=== PATIENT | female | born 1970 | race American Indian/Alaskan Native ===

== ENCOUNTER 2020-12-02 15:41 | Inpatient (IN) | payer BC ==
--- NOTE | 2020-12-02 15:50 | Emergency Department Report ---
Blank Doc - Documentation Documentation: 50-year-old female that presents with generalized abdominal pain with bright red rectal bleeding. Patient was sent by her PCP. Patient just had a colonoscopy a few days ago. 1- This initial assessment/diagnostic orders/clinical plan/ treatment(s) is/are subject to change based on pt's health status, clinical progression and re- assessment by fellow clinical providers in the ED. Further treatment and workup at subsequent clinical provers discretion. Patient/guardians urged not to elope from ED as their condition may be serious if not clinically assessed and managed. 2-labs 3-UA
[2020-12-02] MEDS ORDERED: HYDROmorphone 1 MG/1 ML INJ IV ONE (17:43)
[2020-12-02] MEDS ORDERED: SODIUM CHLORIDE 0.9% 1000 ML 1,000 ML IV ONE (17:43)
--- NOTE | 2020-12-02 17:53 | Emergency Department Report ---
ED General Adult HPI - General Chief complaint: GI Bleed Stated complaint: RECTAL BLEEDING/STOMACH PAIN PUI?: No Time Seen by Provider: 12/02/20 15:44 Source: patient, RN notes reviewed Mode of arrival: Ambulatory Limitations: No Limitations - History of Present Illness Initial comments: The patient was evaluated in the emergency department for symptoms described in the history of present illness. He/she was evaluated in the context of the global COVID-19 pandemic, which necessitated consideration that the patient might be at risk for infection with the virus that causes COVID-19. Institutional protocols and algorithms that pertain to the evaluation of patients at risk for COVID-19 are in a state of rapid change based on information released by regulatory bodies including the CDC and federal and state organizations. These policies and algorithms were followed during the patient's care in the emergency department. Please note that these policies, procedures and recommendations changed on a rapid basis. Past medical history: IBS, gastric bypass, partial hysterectomy, appendectomy, colonoscopy last week, with 3 polyps removed. Gastroenterology: Dr. Perdomo, [facility] During the entire history and physical examination, I am chaperoned by nurse Efrain Roche. This is a 50-year-old female. She is not known to myself previously. She presents to the ER today with a complaint of nontraumatic left lower quadrant pain, and intermittent painless rectal bleeding. Patient had a colonoscopy this past Thursday by the aforementioned GI group. After the procedure, she had lower abdominal cramping and bloody stool. Her medical records coder counseled her to go to the emergency room. The patient states she did not want to go to an emergency room. The next day, Thursday, she says that she felt fine. She started to have increasing cramping on Thursday. Today, she states that she had a large bloody bowel movement, "it looks like I was having a period." The patient denies headache, neck pain, chest pain, shortness of breath, hematemesis, dysuria, loss of taste and smell. Abdominal pain is primarily in the left lower quadrant. It increases with palpation. Decreases with rest, position, and heating pad. -: Gradual, days(s) Location: abdomen Radiation: non-radiation Quality: aching Consistency: intermittent Improves with: rest Worsens with: movement - Related Data Allergies Allergy/AdvReac Type Severity Reaction Status Date / Time No Known Allergies Allergy Verified 12/02/20 18:03 ED Review of Systems ROS: Stated complaint: RECTAL BLEEDING/STOMACH PAIN Other details as noted in HPI Constitutional: other (Denies loss of taste and smell). denies: fever, malaise, weakness Eyes: denies: eye discharge ENT: denies: epistaxis Respiratory: denies: cough Cardiovascular: denies: chest pain Gastrointestinal: abdominal pain, hematochezia. denies: hematemesis, melena Genitourinary: denies: dysuria Musculoskeletal: denies: back pain Skin: denies: lesions Neurological: denies: weakness Hematological/Lymphatic: denies: easy bleeding ED Past Medical Hx - Past Medical History Previous Medical History?: Yes Additional medical history: Colon polyps - Surgical History Past Surgical History?: Yes Additional Surgical History: Colonoscopy - Social History Smoking Status: Former Smoker Substance Use Type: None ED Physical Exam - General Limitations: No Limitations General appearance: alert, in no apparent distress - Head Head exam: Present: atraumatic, normocephalic - Eye Eye exam: Present: normal appearance, EOMI. Absent: nystagmus - ENT ENT exam: Present: normal exam, normal orophraynx, mucous membranes moist, normal external ear exam - Neck Neck exam: Present: normal inspection, full ROM. Absent: tenderness, meningismus - Respiratory Respiratory exam: Present: normal lung sounds bilaterally. Absent: respiratory distress, wheezes, rales, rhonchi, stridor, decreased breath sounds - Cardiovascular Cardiovascular Exam: Present: regular rate, normal rhythm, normal heart sounds. Absent: bradycardia, tachycardia, irregular rhythm, systolic murmur, diastolic murmur, rubs, gallop - GI/Abdominal GI/Abdominal exam: Present: soft, tenderness, other (There is left lower quadrant tenderness.). Absent: distended, guarding, rebound, rigid, pulsatile mass - Rectal Rectal exam: Present: normal inspection, normal rectal tone, heme (+) stool, bloody stool, other (Chaperoned by nurse Efrain Roche) - Extremities Exam Extremities exam: Present: normal inspection, full ROM, other (2+ pulses noted in the bilateral upper and lower extremities. There is no palpable cord. negative Homans sign. Muscular compartments are soft. The pelvis is stable.). Absent: pedal edema, calf tenderness - Back Exam Back exam: Present: normal inspection, full ROM. Absent: tenderness, CVA tenderness (R), CVA tenderness (L), paraspinal tenderness, vertebral tenderness - Neurological Exam Neurological exam: Present: alert, normal gait, other (No facial droop. Tongue midline. Extraocular movements intact bilaterally. Facial sensation intact to light touch in V1, V2, V3 distribution bilaterally. 5 and a 5 strength in 4 extremities. Sensation intact to light touch in 4 extremities.). Absent: motor sensory deficit - Psychiatric Psychiatric exam: Present: normal affect, normal mood - Skin Skin exam: Present: warm, dry, intact, normal color. Absent: rash ED Course Vital Signs 12/02/20 12/02/20 12/02/20 15:50 18:36 19:01 Temperature 98.5 F Pulse Rate 79 72 Respiratory 15 16 12 Rate Blood Pressure 169/105 153/87 O2 Sat by Pulse 100 100 Oximetry O2 Sat by Pulse Oximetry [ Digit-Finger] 12/02/20 12/02/20 12/02/20 19:25 19:31 19:45 Temperature Pulse Rate 80 74 83 Respiratory 16 12 11 L Rate Blood Pressure 153/87 167/92 167/92 O2 Sat by Pulse 100 100 99 Oximetry O2 Sat by Pulse Oximetry [ Digit-Finger] 12/02/20 12/02/20 12/02/20 19:50 20:00 20:15 Temperature Pulse Rate 71 72 Respiratory 12 13 Rate Blood Pressure 168/91 168/91 O2 Sat by Pulse 100 100 Oximetry O2 Sat by Pulse 99 Oximetry [ Digit-Finger] 12/02/20 12/02/20 12/02/20 20:31 20:45 21:03 Temperature Pulse Rate 73 72 74 Respiratory 11 L 11 L Rate Blood Pressure 168/91 168/91 168/91 O2 Sat by Pulse 100 100 100 Oximetry O2 Sat by Pulse Oximetry [ Digit-Finger] 12/02/20 12/02/20 12/02/20 21:15 21:31 21:36 Temperature Pulse Rate 70 74 Respiratory 17 21 16 Rate Blood Pressure 154/95 154/95 O2 Sat by Pulse 100 99 Oximetry O2 Sat by Pulse Oximetry [ Digit-Finger] 12/02/20 12/02/20 12/02/20 21:45 22:01 22:06 Temperature Pulse Rate 70 70 Respiratory 12 19 16 Rate Blood Pressure 154/95 154/95 O2 Sat by Pulse 98 100 Oximetry O2 Sat by Pulse Oximetry [ Digit-Finger] 12/02/20 12/02/20 12/02/20 22:15 22:21 22:26 Temperature Pulse Rate 74 65 71 Respiratory 17 15 13 Rate Blood Pressure 154/95 154/95 168/91 O2 Sat by Pulse 99 95 100 Oximetry O2 Sat by Pulse Oximetry [ Digit-Finger] - Reevaluation(s) Reevaluation #1: 12/02/20 17:51 Differential diagnosis, including but not limited to: Post polypectomy bleed, procedural related colitis, perforated viscus, diverticulosis, diverticulitis, angiodysplasia Assessment and plan: 50-year-old female, who was afebrile, with reassuring vital signs, hemodynamically stable at this time, with left lower quadrant pain and tenderness, and history of dark red blood per rectum status post colonoscopy 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 Obtain appropriate laboratory studies. N.p.o. status at this time, obtain CT scan of the abdomen pelvis. Reassess after initial data points. Have discussed this plan of care with the patient. She is amenable to this plan of care. Patient states she does not take systemic anticoagulation. She does not take NSAIDs. Reevaluation #2: 12/02/20 19:28 Patient feels improved. Laboratory studies are reviewed and appreciated. Have contacted gastroenterology on-call, Dr. Raza. Have discussed the patient's history, physical, pertinent laboratory studies and pending imaging studies at this time. We are both in agreement that it is reasonable to have this patient admitted for serial abdominal exams, serial CBC, and urgent GI consultation. He indicates his group can see the patient in the morning closely in consultation. CT scan abdomen pelvis pending interpretation at this time. 12/02/20 19:50 CT scan of the abdomen pelvis negative for acute findings. Patient amenable to admission and hospitalization. Hospital physician is paged to arrange admission. Dr Michelle Sexton to admit to [facility] 12/03/20 11:14 - Pulse Oximetry Interpretation Digit-Finger Initial Pulse Oximetry Readin O2 Sat by Pulse Oximetry: 99 Actions Taken: none ED Medical Decision Making - Lab Data Result diagrams: 12/03/20 04:13 12/03/20 04:13 Vital Signs 05/09/21 15:50 Temperature 98.5 F Pulse Rate 79 Respiratory 15 Rate Blood Pressure 169/105 O2 Sat by Pulse 100 Oximetry Lab Results 12/02/20 12/02/20 12/02/20 Range/Units 18:24 18:24 18:24 WBC 4.4 L (4.5-11.0) K/mm3 RBC 3.83 (3.65-5.03) M/mm3 Hgb 11.9 (10.1-14.3) gm/dl Hct 36.3 (30.3-42.9) % MCV 95 (79-97) fl MCH 31 (28-32) pg MCHC 33 (30-34) % RDW 13.5 (13.2-15.2) % Plt Count 231 (140-440) K/mm3 Lymph % (Auto) 37.0 H (13.4-35.0) % Gilmer % (Auto) 12.8 H (0.0-7.3) % Eos % (Auto) 2.1 (0.0-4.3) % Baso % (Auto) 0.5 (0.0-1.8) % Lymph # (Auto) 1.6 (1.2-5.4) K/mm3 Gilmer # (Auto) 0.6 (0.0-0.8) K/mm3 Eos # (Auto) 0.1 (0.0-0.4) K/mm3 Baso # (Auto) 0.0 (0.0-0.1) K/mm3 Seg Neutrophils % 47.6 (40.0-70.0) % Seg Neutrophils # 2.1 (1.8-7.7) K/mm3 PT 12.2 (12.2-14.9) Sec. INR 0.92 (0.87-1.13) APTT 31.0 (24.2-36.6) Sec. Sodium 142 (137-145) mmol/L Potassium 4.4 (3.6-5.0) mmol/L Chloride 105.2 (98-107) mmol/L Carbon Dioxide 30 (22-30) mmol/L Anion Gap 11 mmol/L BUN 17 (7-17) mg/dL Creatinine 0.7 (0.6-1.2) mg/dL Estimated GFR > 60 ml/min BUN/Creatinine Ratio 24 % Glucose 89 (65-100) mg/dL Calcium 8.8 (8.4-10.2) mg/dL Magnesium 2.40 H (1.7-2.3) mg/dL Total Bilirubin 0.20 (0.1-1.2) mg/dL AST 22 (5-40) units/L ALT 30 (7-56) units/L Alkaline Phosphatase 103 (35-129) units/L Total Creatine Kinase (30-135) units/L Total Protein 6.8 (6.3-8.2) g/dL Albumin 4.2 (3.9-5) g/dL Albumin/Globulin Ratio 1.6 % Blood Type 12/02/20 12/02/20 Range/Units 18:24 18:24 WBC (4.5-11.0) K/mm3 RBC (3.65-5.03) M/mm3 Hgb (10.1-14.3) gm/dl Hct (30.3-42.9) % MCV (79-97) fl MCH (28-32) pg MCHC (30-34) % RDW (13.2-15.2) % Plt Count (140-440) K/mm3 Lymph % (Auto) (13.4-35.0) % Gilmer % (Auto) (0.0-7.3) % Eos % (Auto) (0.0-4.3) % Baso % (Auto) (0.0-1.8) % Lymph # (Auto) (1.2-5.4) K/mm3 Gilmer # (Auto) (0.0-0.8) K/mm3 Eos # (Auto) (0.0-0.4) K/mm3 Baso # (Auto) (0.0-0.1) K/mm3 Seg Neutrophils % (40.0-70.0) % Seg Neutrophils # (1.8-7.7) K/mm3 PT (12.2-14.9) Sec. INR (0.87-1.13) APTT (24.2-36.6) Sec. Sodium (137-145) mmol/L Potassium (3.6-5.0) mmol/L Chloride (98-107) mmol/L Carbon Dioxide (22-30) mmol/L Anion Gap mmol/L BUN (7-17) mg/dL Creatinine (0.6-1.2) mg/dL Estimated GFR ml/min BUN/Creatinine Ratio % Glucose (65-100) mg/dL Calcium (8.4-10.2) mg/dL Magnesium (1.7-2.3) mg/dL Total Bilirubin (0.1-1.2) mg/dL AST (5-40) units/L ALT (7-56) units/L Alkaline Phosphatase (35-129) units/L Total Creatine Kinase 60 (30-135) units/L Total Protein (6.3-8.2) g/dL Albumin (3.9-5) g/dL Albumin/Globulin Ratio % Blood Type O POSITIVE - Radiology Data Radiology results: report reviewed, image reviewed [facility] [address] [place] [address] Cat Scan Report Signed Patient: AGAPITO TRIANA MR#: [id number] : 1970 Acct:[id number] Age/Sex: 50 / F ADM Date: 12/02/20 Loc: ED Attending Dr: Ordering Physician: ANAYA MORLEY MD Date of Service: 12/02/20 Procedure(s): CT abdomen pelvis w con Accession Number(s): [id number] cc: ANAYA MORLEY MD CT ABDOMEN AND PELVIS WITH CONTRAST HISTORY: Left lower quadrant pain and GI bleeding COMPARISON: None TECHNIQUE: Routine abdominal and pelvic CT exam performed following intravenous contrast administration.. All CT scans at this location are performed using CT dose reduction for ALARA by means of automated exposure control. FINDINGS: CT ABDOMEN: Lung Bases: No significant abnormality. Liver: Small simple cyst in the mid right hepatic lobe. Biliary: No significant abnormality. Spleen: No significant abnormality. Unenlarged. Pancreas: No significant abnormality. Adrenals: No significant abnormality. Kidneys: No significant abnormality. Lymphatics: No lymphadenopathy. Vasculature: No significant abnormality. 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 Appendix not visualized. No pericecal inflammation. Sigmoid diverticulosis without diverticulitis. CT PELVIC: : There is a 2.5 cm right ovarian cyst. Lymphatics: No lymphadenopathy. Osseous Structures: No aggressive appearing osseous lesions. Additional Findings: None IMPRESSION: 1. No acute findings. 2. Sigmoid diverticulosis without diverticulitis. 3. Incidental 2.5 cm right ovarian cyst. Signer Name: Ramesh Nesbitt MD Signed: 12/02/2020 7:39 PM Workstation Name: [id number] Transcribed By: SHYAM Dictated By: Ramesh Nesbitt MD Electronically Authenticated By: Ramesh Nesbitt MD Signed Date/Time: 12/02/201938 DD/DT: 1936 Critical care attestation.: If time is entered above; I have spent that time in minutes in the direct care of this critically ill patient, excluding procedure time. ED Disposition Clinical Impression: Left lower quadrant abdominal pain, Status post colonoscopy, Sigmoid diverticulosis Gastrointestinal bleed Qualifiers: GI bleed type/associated pathology: unspecified gastrointestinal hemorrhage type Qualified Code(s): K92.2 - Gastrointestinal hemorrhage, unspecified Disposition: OP ADMIT IP TO THIS HOSP Is pt being admited?: Yes Does the pt Need Aspirin: No Condition: Good
[2020-12-02] MEDS ORDERED: ONDANSETRON 4 MG/2 ML INJ ONE (18:02)
[2020-12-02] MEDS ORDERED: ONDANSETRON 4 MG/2 ML INJ IV ONE (18:02)
[2020-12-02] MEDS ORDERED: hydrOXYzine HCL 25 MG TAB PO ONE (18:26)
[2020-12-02 18:41] LABS: Basophils % (Auto) 0.5 % (0.0-1.8); Eosinophils # (Auto) 0.1 K/mm3 (0.0-0.4); Eosinophils % (Auto) 2.1 % (0.0-4.3); Hematocrit 36.3 % (30.3-42.9); Hemoglobin 11.9 gm/dl (10.1-14.3); Lymphocytes # (Auto) 1.6 K/mm3 (1.2-5.4); Mean Corpuscular HGB Conc 33 % (30-34); Mean Corpuscular Volume 95 fl (79-97); Monocytes # (Auto) 0.6 K/mm3 (0.0-0.8); Monocytes % (Auto) 12.8 % (0.0-7.3); Platelet Count 231 K/mm3 (140-440); Red Blood Count 3.83 M/mm3 (3.65-5.03); Red Cell Distribution Width 13.5 % (13.2-15.2)
[2020-12-02 18:53] LABS: INR 0.92 (0.87-1.13)
[2020-12-02 18:58] LABS: Alanine Aminotransferase 30 units/L (7-56); Albumin 4.2 g/dL (3.9-5); BUN/Creatinine Ratio 24; Blood Urea Nitrogen 17 mg/dL (7-17); Calcium 8.8 mg/dL (8.4-10.2); Hemolysis Index 3
--- NOTE | 2020-12-02 19:43 | Cat Scan Report ---
CT ABDOMEN AND PELVIS WITH CONTRAST HISTORY: Left lower quadrant pain and GI bleeding COMPARISON: None TECHNIQUE: Routine abdominal and pelvic CT exam performed following intravenous contrast administrat ion.. All CT scans at this location are performed using CT dose reduction for ALARA by means of autom ated exposure control. FINDINGS: CT ABDOMEN: Lung Bases: No significant abnormality. Liver: Small simple cyst in the mid right hepatic lobe. Biliary: No significant abnormality. Spleen: No significant abnormality. Unenlarged. Pancreas: No significant abnormality. Adrenals: No significant abnormality. Kidneys: No significant abnormality. Lymphatics: No lymphadenopathy. Vasculature: No significant abnormality. 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 A ppendix not visualized. No pericecal inflammation. Sigmoid diverticulosis without diverticulitis. CT PELVIC: : There is a 2.5 cm right ovarian cyst. Lymphatics: No lymphadenopathy. Osseous Structures: No aggressive appearing osseous lesions. Additional Findings: None IMPRESSION: 1. No acute findings. 2. Sigmoid diverticulosis without diverticulitis. 3. Incidental 2.5 cm right ovarian cyst. Signer Name: Ramesh Nesbitt MD Signed: 12/02/2020 7:39 PM Workstation Name: [id number]
[2020-12-02] MEDS ORDERED: ONDANSETRON 4 MG/2 ML INJ IV PRN (20:48)
[2020-12-02] MEDS ORDERED: METOCLOPRAMIDE 10 MG/2 ML INJ IV PRN (20:48)
[2020-12-02] MEDS ORDERED: ACETAMINOPHEN 325 MG TAB PO PRN (20:48)
--- NOTE | 2020-12-02 21:03 | History and Physical Report ---
History of Present Illness Date of examination: 12/02/20 Date of admission: Dec 02 2020 Chief complaint: Sonal red blood per rectum since a.m. History of present illness: 50-year-old -[place] female with history of borderline diabetes comes in for left lower quadrant pain and sonal red blood per rectum. This is a first episode of bleeding. Patient had a colonoscopy on Thursday which is 5 days ago and a polyp was removed and hemorrhoids were visualized. Patient has seen Dr. Perdomo from [facility] gastroenterology. No fever or chills. Call her public health specialist who told her to come to the emergency room. No lightheadedness. No fainting spells. Pain is about 6 on a scale of 1-10 intermittent in nature and cramping in nature. Patient has also history of gastroesophageal reflux disease. On PPIs - Past Medical History Previous Medical History?: Yes Additional medical history: Colon polyps GERD - Surgical History Past Surgical History?: Yes Additional Surgical History: Colonoscopy - Social History Smoking Status: Former Smoker Substance Use Type: None Family history Htn Review of Systems ROS: Stated complaint: RECTAL BLEEDING/STOMACH PAIN Other details as noted in HPI Constitutional: other (Denies loss of taste and smell). denies: fever, malaise, weakness Eyes: denies: eye discharge ENT: denies: epistaxis Respiratory: denies: cough Cardiovascular: denies: chest pain Gastrointestinal: abdominal pain, hematochezia. denies: hematemesis, melena Genitourinary: denies: dysuria Musculoskeletal: denies: back pain Skin: denies: lesions Neurological: denies: weakness Hematological/Lymphatic: denies: easy bleeding Medications and Allergies Allergies Allergy/AdvReac Type Severity Reaction Status Date / Time No Known Allergies Allergy Verified 12/02/20 18:03 Exam - Constitutional Vitals: Temp Pulse Resp BP Pulse Ox 98.5 F 72 12 153/87 99 12/02/20 15:50 12/02/20 19:01 12/02/20 19:01 12/02/20 19:01 12/02/20 19:50 General appearance: Present: no acute distress, well-nourished - EENT Eyes: Present: PERRL ENT: hearing intact, clear oral mucosa - Neck Neck: Present: supple, normal ROM - Respiratory Respiratory effort: normal Respiratory: bilateral: CTA - Cardiovascular Heart rate: 78 Rhythm: regular Heart Sounds: Present: S1 & S2. Absent: rub, click - Extremities Extremities: no ischemia, pulses intact, pulses symmetrical, No edema Peripheral Pulses: within normal limits - Abdominal General gastrointestinal: Present: soft, non-tender, non-distended, normal bowel sounds Female genitourinary: Present: normal - Rectal Rectal Exam: stool bloody - Integumentary Integumentary: Present: clear, warm, dry - Musculoskeletal Musculoskeletal: gait normal, strength equal bilaterally - Psychiatric Psychiatric: appropriate mood/affect, intact judgment & insight - Neurologic Neurologic: CNII-XII intact, moves all extremities - Allied Health Allied health notes reviewed: nursing, case management Results - Labs CBC & Chem 7: 12/02/20 21:07 12/02/20 18:24 Labs: Laboratory Last Values WBC 4.4 K/mm3 (4.5-11.0) L 12/02/20 18:24 RBC 3.83 M/mm3 (3.65-5.03) 12/02/20 18:24 Hgb 11.9 gm/dl (10.1-14.3) 12/02/20 18:24 Hct 36.3 % (30.3-42.9) 12/02/20 18:24 MCV 95 fl (79-97) 12/02/20 18:24 MCH 31 pg (28-32) 12/02/20 18:24 MCHC 33 % (30-34) 12/02/20 18:24 RDW 13.5 % (13.2-15.2) 12/02/20 18:24 Plt Count 231 K/mm3 (140-440) 12/02/20 18:24 Lymph % (Auto) 37.0 % (13.4-35.0) H 12/02/20 18:24 Dunn % (Auto) 12.8 % (0.0-7.3) H 12/02/20 18:24 Eos % (Auto) 2.1 % (0.0-4.3) 12/02/20 18:24 Baso % (Auto) 0.5 % (0.0-1.8) 12/02/20 18:24 Lymph # (Auto) 1.6 K/mm3 (1.2-5.4) 12/02/20 18:24 Dunn # (Auto) 0.6 K/mm3 (0.0-0.8) 12/02/20 18:24 Eos # (Auto) 0.1 K/mm3 (0.0-0.4) 12/02/20 18:24 Baso # (Auto) 0.0 K/mm3 (0.0-0.1) 12/02/20 18:24 Seg Neutrophils % 47.6 % (40.0-70.0) 12/02/20 18:24 Seg Neutrophils # 2.1 K/mm3 (1.8-7.7) 12/02/20 18:24 PT 12.2 Sec. (12.2-14.9) 12/02/20 18:24 INR 0.92 (0.87-1.13) 12/02/20 18:24 APTT 31.0 Sec. (24.2-36.6) 12/02/20 18:24 Sodium 142 mmol/L (137-145) 12/02/20 18:24 Potassium 4.4 mmol/L (3.6-5.0) 12/02/20 18:24 Chloride 105.2 mmol/L (98-107) 12/02/20 18:24 Carbon Dioxide 30 mmol/L (22-30) 12/02/20 18:24 Anion Gap 11 mmol/L 12/02/20 18:24 BUN 17 mg/dL (7-17) 12/02/20 18:24 Creatinine 0.7 mg/dL (0.6-1.2) 12/02/20 18:24 Estimated GFR > 60 ml/min 12/02/20 18:24 BUN/Creatinine Ratio 24 % 12/02/20 18:24 Glucose 89 mg/dL (65-100) 12/02/20 18:24 Calcium 8.8 mg/dL (8.4-10.2) 12/02/20 18:24 Magnesium 2.40 mg/dL (1.7-2.3) H 12/02/20 18:24 Total Bilirubin 0.20 mg/dL (0.1-1.2) 12/02/20 18:24 AST 22 units/L (5-40) 12/02/20 18:24 ALT 30 units/L (7-56) 12/02/20 18:24 Alkaline Phosphatase 103 units/L (35-129) 12/02/20 18:24 Total Creatine Kinase 60 units/L (30-135) 12/02/20 18:24 Total Protein 6.8 g/dL (6.3-8.2) 12/02/20 18:24 Albumin 4.2 g/dL (3.9-5) 12/02/20 18:24 Albumin/Globulin Ratio 1.6 % 12/02/20 18:24 Blood Type O POSITIVE 12/02/20 18:24 Antibody Screen Negative 12/02/20 18:24 Short CBC 12/02/20 12/02/20 Range/Units 18:24 21:07 WBC 4.4 L (4.5-11.0) K/mm3 Hgb 11.9 11.9 (10.1-14.3) gm/dl Hct 36.3 36.8 (30.3-42.9) % Plt Count 231 (140-440) K/mm3 BMP 12/02/20 18:24 Sodium 142 Potassium 4.4 Chloride 105.2 Carbon Dioxide 30 BUN 17 Creatinine 0.7 Glucose 89 Calcium 8.8 Cardiac Enzymes 12/02/20 Range/Units 18:24 Total Creatine Kinase 60 (30-135) units/L Liver Function 12/02/20 Range/Units 18:24 Total Bilirubin 0.20 (0.1-1.2) mg/dL AST 22 (5-40) units/L ALT 30 (7-56) units/L Alkaline Phosphatase 103 (35-129) units/L Albumin 4.2 (3.9-5) g/dL - Imaging and Cardiology CT scan - abdomen: report reviewed Imaging and Cardiology: CT abdomen Abdominal CAT scan No acute findings Sigmoid diverticulosis without diverticulitis Incidental 2.5 cm right ovarian cyst Assessment and Plan Advance Directives: Yes (Full code) VTE prophylaxis?: Mechanical Plan of care discussed with patient/family: Yes - Patient Problems (1) Gastrointestinal bleed Current Visit: Yes Status: Acute Qualifiers: GI bleed type/associated pathology: unspecified gastrointestinal hemorrhage type Qualified Code(s): K92.2 - Gastrointestinal hemorrhage, unspecified Plan to address problem: Possible diverticular bleed versus hemorrhoids GI consult requested IV Protonix initiated Hemoglobin and hematocrit to be checked every 8 hours Transfuse if necessary (2) Sigmoid diverticulosis Current Visit: Yes Status: Chronic Plan to address problem: On the CAT scan May be the source of the bleeding (3) Hypertension Current Visit: Yes Status: Chronic Qualifiers: Hypertension type: essential hypertension Qualified Code(s): I10 - Essential (primary) hypertension Plan to address problem: As per patient is borderline and not on any medications We will start antihypertensives if necessary (4) GERD (gastroesophageal reflux disease) Current Visit: Yes Status: Chronic Qualifiers: Esophagitis presence: with esophagitis Plan to address problem: On IV Protonix for now changed to oral Protonix in 24 to 48 hours (5) DVT prophylaxis Current Visit: Yes Status: Acute Plan to address problem: On SCDs and GI prophylaxis
[2020-12-02 21:33] LABS: Hematocrit 36.8 % (30.3-42.9); Hemoglobin 11.9 gm/dl (10.1-14.3)
[2020-12-02] MEDS: D5W/0.9% NACL 1,000 ML IV SCH (21:33)
[2020-12-02] MEDS: diphenhydrAMINE 50 MG/ML VIAL IV PRN (21:35)
[2020-12-02] MEDS: MORPHINE 2 MG/1 ML INJ IV PRN (21:36)
[2020-12-03] MEDS: MORPHINE 2 MG/1 ML INJ IV PRN ×5 (01:53→23:16)
[2020-12-03] MEDS: diphenhydrAMINE 50 MG/ML VIAL IV PRN ×4 (01:55→23:16)
[2020-12-03 04:37] LABS: Basophils % (Auto) 0.9 % (0.0-1.8); Eosinophils # (Auto) 0.1 K/mm3 (0.0-0.4); Eosinophils % (Auto) 1.7 % (0.0-4.3); Hematocrit 32.9 % (30.3-42.9); Hemoglobin 10.9 gm/dl (10.1-14.3); Lymphocytes % (Auto) 51.5 % (13.4-35.0); Mean Corpuscular HGB Conc 33 % (30-34); Mean Corpuscular Volume 94 fl (79-97); Monocytes # (Auto) 0.4 K/mm3 (0.0-0.8); Monocytes % (Auto) 10.6 % (0.0-7.3); Platelet Count 208 K/mm3 (140-440); Red Blood Count 3.49 M/mm3 (3.65-5.03); Red Cell Distribution Width 13.3 % (13.2-15.2)
[2020-12-03 04:53] LABS: Alanine Aminotransferase 24 units/L (7-56); Albumin 3.4 g/dL (3.9-5); Blood Urea Nitrogen 14 mg/dL (7-17); Calcium 8.5 mg/dL (8.4-10.2); Hemolysis Index 5
[2020-12-03 04:54] LABS: BUN/Creatinine Ratio 23
[2020-12-03] MEDS: D5W/0.9% NACL 1,000 ML IV SCH ×2 (09:01→19:01)
[2020-12-03] MEDS ORDERED: PANTOPRAZOLE 40 MG INJ IV SCH (10:00)
--- NOTE | 2020-12-03 12:07 | Progress Note ---
Assessment and Plan Assessment and plan: Assessment and Plan Advance Directives: Yes (Full code) VTE prophylaxis?: Mechanical Plan of care discussed with patient/family: Yes - Patient Problems (1) Gastrointestinal bleed Current Visit: Yes Status: Acute Qualifiers: GI bleed type/associated pathology: unspecified gastrointestinal hemorrhage type Qualified Code(s): K92.2 - Gastrointestinal hemorrhage, unspecified Plan to address problem: Possible diverticular bleed versus hemorrhoids GI consult requested IV Protonix initiated Hemoglobin and hematocrit to be checked every 8 hours Transfuse if necessary (2) Sigmoid diverticulosis Current Visit: Yes Status: Chronic Plan to address problem: On the CAT scan May be the source of the bleeding (3) Hypertension Current Visit: Yes Status: Chronic Qualifiers: Hypertension type: essential hypertension Qualified Code(s): I10 - Essential (primary) hypertension Plan to address problem: As per patient is borderline and not on any medications We will start antihypertensives if necessary (4) GERD (gastroesophageal reflux disease) Current Visit: Yes Status: Chronic Qualifiers: Esophagitis presence: with esophagitis Plan to address problem: On IV Protonix for now changed to oral Protonix in 24 to 48 hours (5) DVT prophylaxis Current Visit: Yes Status: Acute Plan to address problem: On SCDs and GI prophylaxis 12/03/20 Patient is seen and examined. Patient has no more bowel movement .no more GI bleeding. Complained of abdominal pain no nausea vomiting Patient hemoglobin is 10.[address] abdomen No acute findings Sigmoid diverticulosis without diverticulitis Incidental 2.5 cm right ovarian cyst. Patient is on IV Protonix. Waiting for GI evaluation Recheck CBC in the morning. Discharge planning when cleared by GI Chief complaint: Sonal red blood per rectum since a.m. History of present illness: 50-year-old -[place] female with history of borderline diabetes comes in for left lower quadrant pain and sonal red blood per rectum. This is a first episode of bleeding. Patient had a colonoscopy on Thursday which is 5 days ago and a polyp was removed and hemorrhoids were visualized. Patient has seen Dr. Perdomo from [facility] gastroenterology. No fever or chills. Call her mike roenterologist who told her to come to the emergency room. No lightheadedness. No fainting spells. Pain is about 6 on a scale of 1-10 intermittent in nature and cramping in nature. Patient has also history of gastroesophageal reflux disease. On PPIs - Past Medical History Previous Medical History?: Yes Additional medical history: Colon polyps GERD - Surgical History Past Surgical History?: Yes Additional Surgical History: Colonoscopy - Social History Smoking Status: Former Smoker Substance Use Type: None Family history Htn History Interval history: Patient is seen and examined Patient chart and medications reviewed Patient has normal bowel movement. No more GI bleeding. Patient complained of abdominal pain. No nausea no vomiting Hemoglobin is 10.9 hematocrit 32.9 Vitals are stable Hospitalist Physical - Constitutional Vitals: Temp Pulse Resp BP Pulse Ox 98.3 F 73 18 116/67 99 12/03/20 08:00 12/03/20 08:00 12/03/20 09:40 12/03/20 08:00 12/03/20 11:15 General appearance: Present: no acute distress, well-nourished - EENT Eyes: Present: PERRL, EOM intact ENT: hearing intact, clear oral mucosa, dentition normal - Neck Neck: Present: supple, normal ROM - Respiratory Respiratory effort: normal Respiratory: bilateral: CTA - Cardiovascular Rhythm: regular Heart Sounds: Present: S1 & S2 - Extremities Extremities: no ischemia Peripheral Pulses: within normal limits - Abdominal General gastrointestinal: soft, non-tender, non-distended, normal bowel sounds - Integumentary Integumentary: Present: warm, dry - Psychiatric Psychiatric: appropriate mood/affect, intact judgment & insight - Neurologic Neurologic: CNII-XII intact, moves all extremities - Allied Health Allied health notes reviewed: nursing Results - Labs CBC & Chem 7: 12/03/20 04:13 12/03/20 04:13 Labs: Laboratory Last Values WBC 4.0 K/mm3 (4.5-11.0) L 12/03/20 04:13 RBC 3.49 M/mm3 (3.65-5.03) L 12/03/20 04:13 Hgb 10.9 gm/dl (10.1-14.3) 12/03/20 04:13 Hct 32.9 % (30.3-42.9) 12/03/20 04:13 MCV 94 fl (79-97) 12/03/20 04:13 MCH 31 pg (28-32) 12/03/20 04:13 MCHC 33 % (30-34) 12/03/20 04:13 RDW 13.3 % (13.2-15.2) 12/03/20 04:13 Plt Count 208 K/mm3 (140-440) 12/03/20 04:13 Lymph % (Auto) 51.5 % (13.4-35.0) H 12/03/20 04:13 Stephenson % (Auto) 10.6 % (0.0-7.3) H 12/03/20 04:13 Eos % (Auto) 1.7 % (0.0-4.3) 12/03/20 04:13 Baso % (Auto) 0.9 % (0.0-1.8) 12/03/20 04:13 Lymph # (Auto) 2.0 K/mm3 (1.2-5.4) 12/03/20 04:13 Stephenson # (Auto) 0.4 K/mm3 (0.0-0.8) 12/03/20 04:13 Eos # (Auto) 0.1 K/mm3 (0.0-0.4) 12/03/20 04:13 Baso # (Auto) 0.0 K/mm3 (0.0-0.1) 12/03/20 04:13 Seg Neutrophils % 35.3 % (40.0-70.0) L 12/03/20 04:13 Seg Neutrophils # 1.4 K/mm3 (1.8-7.7) L 12/03/20 04:13 PT 12.2 Sec. (12.2-14.9) 12/02/20 18:24 INR 0.92 (0.87-1.13) 12/02/20 18:24 APTT 31.0 Sec. (24.2-36.6) 12/02/20 18:24 Sodium 140 mmol/L (137-145) 12/03/20 04:13 Potassium 3.9 mmol/L (3.6-5.0) 12/03/20 04:13 Chloride 105.0 mmol/L (98-107) 12/03/20 04:13 Carbon Dioxide 27 mmol/L (22-30) 12/03/20 04:13 Anion Gap 12 mmol/L 12/03/20 04:13 BUN 14 mg/dL (7-17) 12/03/20 04:13 Creatinine 0.6 mg/dL (0.6-1.2) 12/03/20 04:13 Estimated GFR > 60 ml/min 12/03/20 04:13 BUN/Creatinine Ratio 23 % 12/03/20 04:13 Glucose 93 mg/dL (65-100) 12/03/20 04:13 Hemoglobin A1c 5.1 % (4-6) 12/03/20 04:13 Calcium 8.5 mg/dL (8.4-10.2) 12/03/20 04:13 Magnesium 2.40 mg/dL (1.7-2.3) H 12/02/20 18:24 Total Bilirubin 0.30 mg/dL (0.1-1.2) 12/03/20 04:13 AST 18 units/L (5-40) 12/03/20 04:13 ALT 24 units/L (7-56) 12/03/20 04:13 Alkaline Phosphatase 78 units/L (35-129) 12/03/20 04:13 Total Creatine Kinase 60 units/L (30-135) 12/02/20 18:24 Total Protein 6.0 g/dL (6.3-8.2) L 12/03/20 04:13 Albumin 3.4 g/dL (3.9-5) L 12/03/20 04:13 Albumin/Globulin Ratio 1.3 % 12/03/20 04:13 Blood Type O POSITIVE 12/02/20 18:24 Antibody Screen Negative 12/02/20 18:24 Rivera/IV: Voiding Method Toilet Active Medications - Current Medications Current Medications: Generic Name Dose Route Start Last Admin Trade Name Freq PRN Reason Stop Dose Admin Acetaminophen 650 mg 12/02/20 20:48 Acetaminophen 325 Mg Tab PO Q4H PRN Pain MILD(1-3)/Fever >100.5/GRAY Diphenhydramine HCl 25 mg 12/02/20 21:12 12/03/20 09:01 Diphenhydramine 50 Mg/Ml Vial IV 25 mg Q6H PRN Administration Itching Hydromorphone HCl 0.5 mg 12/02/20 20:48 Hydromorphone 1 Mg/1 Ml Inj IV Q3H PRN Pain , Severe (7-10) Dextrose/Sodium Chloride 1,000 mls @ 75 mls/hr 12/02/20 21:00 12/03/20 09:01 D5ns IV 75 mls/hr DIRECT GLORIA Administration Metoclopramide HCl 10 mg 12/02/20 20:48 Metoclopramide 10 Mg/2 Ml Inj IV Q6H PRN Nausea And Vomiting Morphine Sulfate 2 mg 12/02/20 20:48 12/03/20 09:01 Morphine 2 Mg/1 Ml Inj IV 2 mg Q4H PRN Administration Pain, Moderate (4-6) Ondansetron HCl 4 mg 12/02/20 20:48 Ondansetron 4 Mg/2 Ml Inj IV Q8H PRN Nausea And Vomiting Pantoprazole Sodium 40 mg 12/03/20 10:00 12/03/20 09:01 Pantoprazole 40 Mg Inj IV 40 mg DAILY GLORIA Administration Sodium Chloride 10 ml 12/02/20 22:00 12/03/20 09:01 Sodium Chloride 0.9% 10 Ml Flush Syringe IV 10 ml BID GLORIA Administration Sodium Chloride 10 ml 12/02/20 20:48 Sodium Chloride 0.9% 10 Ml Flush Syringe IV PRN PRN LINE FLUSH Nutrition/Malnutrition Assess - Malnutrition Assessment Minimum of two criteria: No physical signs of malnutrition - Attestation Statement I have reviewed and agreed w/ Malnutrition eval & tx plan: Yes
--- NOTE | 2020-12-03 13:00 | Gastroenterology Consultation ---
History of Present Illness - Reason for Consult Consult date: 12/03/20 GI bleed Requesting physician: RAUDEL PINO - History of Present Illness This is a 50 yo female with pmh of bordeline DM and IBS, diverticulosis admitted overnight for LLQ pain and hematochezia after a recent outpatient colonoscopy. Patient reports having colonoscopy with Dr. Perdomo 1 week ago on 11/26/2020 for irregular bowel habits. She was told it showed diverticulosis and polyps removed as well as hemorrhoids. She developed LLQ pain on and worsened over the weekend along with 2 episodes of bloody stools yesterday. No nausea/vomiting. In the ED, she had CT a/p which showed sigmoid diverticulosis without diverticulitis. No BM overnight and this morning. Her LLQ pain has somewhat improved. Medication list reviewed. Past History Past Surgical History: appendectomy, hysterectomy, hernia repair Social history: lives with family Family history: no significant family history Medications and Allergies Allergies Allergy/AdvReac Type Severity Reaction Status Date / Time No Known Allergies Allergy Verified 12/02/20 18:03 Active Meds: Active Medications Acetaminophen (Acetaminophen 325 Mg Tab) 650 mg PO Q4H PRN PRN Reason: Pain MILD(1-3)/Fever >100.5/GRAY Diphenhydramine HCl (Diphenhydramine 50 Mg/Ml Vial) 25 mg IV Q6H PRN PRN Reason: Itching Last Admin: 12/03/20 09:01 Dose: 25 mg Documented by: Hydromorphone HCl (Hydromorphone 1 Mg/1 Ml Inj) 0.5 mg IV Q3H PRN PRN Reason: Pain , Severe (7-10) Dextrose/Sodium Chloride (D5ns) 1,000 mls @ 75 mls/hr IV DIRECT GLORIA Last Admin: 12/03/20 09:01 Dose: 75 mls/hr Documented by: Metoclopramide HCl (Metoclopramide 10 Mg/2 Ml Inj) 10 mg IV Q6H PRN PRN Reason: Nausea And Vomiting Morphine Sulfate (Morphine 2 Mg/1 Ml Inj) 2 mg IV Q4H PRN PRN Reason: Pain, Moderate (4-6) Last Admin: 12/03/20 09:01 Dose: 2 mg Documented by: Ondansetron HCl (Ondansetron 4 Mg/2 Ml Inj) 4 mg IV Q8H PRN PRN Reason: Nausea And Vomiting Pantoprazole Sodium (Pantoprazole 40 Mg Inj) 40 mg IV DAILY [facility] Last Admin: 12/03/20 09:01 Dose: 40 mg Documented by: Sodium Chloride (Sodium Chloride 0.9% 10 Ml Flush Syringe) 10 ml IV BID [facility] Last Admin: 12/03/20 09:01 Dose: 10 ml Documented by: Sodium Chloride (Sodium Chloride 0.9% 10 Ml Flush Syringe) 10 ml IV PRN PRN PRN Reason: LINE FLUSH Review of Systems - Review of Systems All systems: negative Constitutional: no weight loss, no weight gain Eyes: no change in vision Ears, Nose, Throat: no decreased hearing Cardiovascular: no chest pain Gastrointestinal: abdominal pain, hematochezia, no nausea, no vomiting Musculoskeletal: no gait dysfunction Neurological: weakness Psychiatric: no anxiety, no memory loss Hematologic/Lymphatic: no easy bruising Allergic/Immunologic: no wheezing Exam - Constitutional Vital Signs: Temp Pulse Resp BP Pulse Ox 98.3 F 73 18 116/67 99 12/03/20 08:00 12/03/20 08:00 12/03/20 09:40 12/03/20 08:00 12/03/20 11:15 General appearance: no acute distress - EENT Eyes: EOM intact ENT: hearing intact - Respiratory Respiratory effort: normal - Cardiovascular Rhythm: regular Heart Sounds: Present: S1 & S2 - Gastrointestinal General gastrointestinal: Present: soft, tender, non-distended, normal bowel sounds Rectal Exam: hemorrhoids, stool brown - Integumentary Integumentary: Present: clear, warm - Neurologic Neurological: alert and oriented x3 - Psychiatric Psychiatric: appropriate mood/affect - Labs CBC & Chem 7: 12/03/20 04:13 12/03/20 04:13 Lab Results: Laboratory Results - last 24 hr 12/02/20 12/02/20 12/02/20 18:24 18:24 18:24 WBC 4.4 L RBC 3.83 Hgb 11.9 Hct 36.3 MCV 95 MCH 31 MCHC 33 RDW 13.5 Plt Count 231 Lymph % (Auto) 37.0 H Craven % (Auto) 12.8 H Eos % (Auto) 2.1 Baso % (Auto) 0.5 Lymph # (Auto) 1.6 Craven # (Auto) 0.6 Eos # (Auto) 0.1 Baso # (Auto) 0.0 Seg Neutrophils % 47.6 Seg Neutrophils # 2.1 PT 12.2 INR 0.92 APTT 31.0 Sodium 142 Potassium 4.4 Chloride 105.2 Carbon Dioxide 30 Anion Gap 11 BUN 17 Creatinine 0.7 Estimated GFR > 60 BUN/Creatinine Ratio 24 Glucose 89 Hemoglobin A1c Calcium 8.8 Magnesium 2.40 H Total Bilirubin 0.20 AST 22 ALT 30 Alkaline Phosphatase 103 Total Creatine Kinase Total Protein 6.8 Albumin 4.2 Albumin/Globulin Ratio 1.6 Blood Type Antibody Screen 12/02/20 12/02/20 12/02/20 18:24 18:24 21:07 WBC RBC Hgb 11.9 Hct 36.8 MCV MCH MCHC RDW Plt Count Lymph % (Auto) Craven % (Auto) Eos % (Auto) Baso % (Auto) Lymph # (Auto) Craven # (Auto) Eos # (Auto) Baso # (Auto) Seg Neutrophils % Seg Neutrophils # PT INR APTT Sodium Potassium Chloride Carbon Dioxide Anion Gap BUN Creatinine Estimated GFR BUN/Creatinine Ratio Glucose Hemoglobin A1c Calcium Magnesium Total Bilirubin AST ALT Alkaline Phosphatase Total Creatine Kinase 60 Total Protein Albumin Albumin/Globulin Ratio Blood Type O POSITIVE Antibody Screen Negative 12/03/20 12/03/20 12/03/20 04:13 04:13 04:13 WBC 4.0 L RBC 3.49 L Hgb 10.9 Hct 32.9 MCV 94 MCH 31 MCHC 33 RDW 13.3 Plt Count 208 Lymph % (Auto) 51.5 H Craven % (Auto) 10.6 H Eos % (Auto) 1.7 Baso % (Auto) 0.9 Lymph # (Auto) 2.0 Craven # (Auto) 0.4 Eos # (Auto) 0.1 Baso # (Auto) 0.0 Seg Neutrophils % 35.3 L Seg Neutrophils # 1.4 L PT INR APTT Sodium 140 Potassium 3.9 Chloride 105.0 Carbon Dioxide 27 Anion Gap 12 BUN 14 Creatinine 0.6 Estimated GFR > 60 BUN/Creatinine Ratio 23 Glucose 93 Hemoglobin A1c 5.1 Calcium 8.5 Magnesium Total Bilirubin 0.30 AST 18 ALT 24 Alkaline Phosphatase 78 Total Creatine Kinase Total Protein 6.0 L Albumin 3.4 L Albumin/Globulin Ratio 1.3 Blood Type Antibody Screen - Imaging CT Scan: report reviewed Assessment and Plan This is a 50 yo female with pmh of bordeline DM and IBS, diverticulosis admitted overnight for LLQ pain and hematochezia after a recent outpatient colonoscopy. # Hematochezia - may be due to diverticular bleed vs hemorrhoids. - colonoscopy on 11/26/2020 with small polyps 5 mm removed with cold forcep. - no active bleeding at this time. Rec - clear liquids today - conservative management - if signs of bleeding or drop in H/H, will plan for colonoscopy. - Patient Problems (1) Gastrointestinal bleed Current Visit: Yes Status: Acute Qualifiers: GI bleed type/associated pathology: unspecified gastrointestinal hemorrhage type Qualified Code(s): K92.2 - Gastrointestinal hemorrhage, unspecified (2) Left lower quadrant abdominal pain Current Visit: Yes Status: Acute (3) Status post colonoscopy Current Visit: Yes Status: Acute
[2020-12-03 15:17] LABS: Hematocrit 34.1 % (30.3-42.9); Hemoglobin 11.3 gm/dl (10.1-14.3)
[2020-12-04] MEDS: diphenhydrAMINE 50 MG/ML VIAL IV PRN ×3 (06:00→18:35)
[2020-12-04] MEDS: MORPHINE 2 MG/1 ML INJ IV PRN ×3 (06:01→18:35)
[2020-12-04 08:32] LABS: Hematocrit 33.2 % (30.3-42.9); Hemoglobin 11.3 gm/dl (10.1-14.3); Mean Corpuscular HGB Conc 34 % (30-34); Mean Corpuscular Volume 94 fl (79-97); Platelet Count 166 K/mm3 (140-440); Red Blood Count 3.52 M/mm3 (3.65-5.03); Red Cell Distribution Width 12.9 % (13.2-15.2)
[2020-12-04] MEDS: D5W/0.9% NACL 1,000 ML IV SCH (09:37)
[2020-12-04] MEDS: PANTOPRAZOLE 40 MG TAB PO SCH (09:37)
--- NOTE | 2020-12-04 12:44 | Gastroenterology Progress Note ---
Assessment and Plan This is a 50 yo female with pmh of bordeline DM and IBS, diverticulosis admitted overnight for LLQ pain and hematochezia after a recent outpatient colonoscopy. # Hematochezia - may be due to diverticular bleed vs hemorrhoids. - colonoscopy on 11/26/2020 with small polyps 5 mm removed with cold forcep. - no active bleeding at this time. - H/H stable. Rec - advance diet as tolerated today. - conservative management - no plans for colonoscopy unless recurrent bleeding. - if tolerating diet and no bleeding, ok for discharge per GI standpoint tomorrow. Follow up with outpatient GI, Dr. Perdomo. - Patient Problems (1) Gastrointestinal bleed Current Visit: Yes Status: Acute Qualifiers: GI bleed type/associated pathology: unspecified gastrointestinal hemorrhage type Qualified Code(s): K92.2 - Gastrointestinal hemorrhage, unspecified (2) Left lower quadrant abdominal pain Current Visit: Yes Status: Acute (3) Status post colonoscopy Current Visit: Yes Status: Acute Subjective Date of service: 12/04/20 Interval history: Patient without any BM today. Persistent LLQ discomfort but tolerating clear liquids. Objective - Constitutional Vitals: Temp Pulse Resp BP Pulse Ox 98.1 F 60 17 117/63 97 12/04/20 05:08 12/04/20 05:08 12/04/20 06:31 12/04/20 05:08 12/04/20 05:08 General appearance: no acute distress - EENT Eyes: EOM intact ENT: hearing intact - Respiratory Respiratory effort: normal - Cardiovascular Rhythm: regular Heart Sounds: Present: S1 & S2 - Gastrointestinal General gastrointestinal: Present: soft, tender, non-distended - Integumentary Integumentary: Present: clear, warm - Neurologic Neurological: alert and oriented x3 - Psychiatric Psychiatric: appropriate mood/affect - Labs CBC & Chem 7: 12/04/20 08:06 12/03/20 04:13 Labs: Laboratory Results - last 24 hr 12/03/20 12/04/20 15:04 08:06 WBC 3.0 L RBC 3.52 L Hgb 11.3 11.3 Hct 34.1 33.2 MCV 94 MCH 32 MCHC 34 RDW 12.9 L Plt Count 166
[2020-12-05] MEDS: HYDROmorphone 1 MG/1 ML INJ IV PRN ×3 (00:09→12:34)
[2020-12-05] MEDS: diphenhydrAMINE 50 MG/ML VIAL IV PRN ×3 (00:10→12:35)
--- NOTE | 2020-12-05 00:17 | Progress Note ---
Assessment and Plan - Patient Problems (1) Gastrointestinal bleed Current Visit: Yes Status: Acute Qualifiers: GI bleed type/associated pathology: unspecified gastrointestinal hemorrhage type Qualified Code(s): K92.2 - Gastrointestinal hemorrhage, unspecified Plan to address problem: # Hematochezia - may be due to diverticular bleed vs hemorrhoids. - colonoscopy on 11/26/2020 with small polyps 5 mm removed with cold forcep. - no active bleeding at this time. - H/H stable. Rec - advance diet as tolerated today. - conservative management - no plans for colonoscopy unless recurrent bleeding. - if tolerating diet and no bleeding, ok for discharge tomorrow. Follow up with outpatient GI (2) Sigmoid diverticulosis Current Visit: Yes Status: Chronic Plan to address problem: On the CAT scan---Sig May be the source of the bleeding (3) Hypertension Current Visit: Yes Status: Chronic Qualifiers: Hypertension type: essential hypertension Qualified Code(s): I10 - Essential (primary) hypertension (4) GERD (gastroesophageal reflux disease) Current Visit: Yes Status: Chronic Qualifiers: Esophagitis presence: with esophagitis Plan to address problem: On IV Protonix for now changed to oral Protonix in 24 to 48 hours (5) DVT prophylaxis Current Visit: Yes Status: Acute Plan to address problem: On SCDs and GI prophylaxis Subjective Date of service: 12/04/20 Principal diagnosis: Lower GI Bleed Interval history: 50-year-old -[place] female with history of borderline diabetes comes in for left lower quadrant pain and sonal red blood per rectum. This is a first episode of bleeding. Patient had a colonoscopy on Thursday which is 5 days ago and a polyp was removed and hemorrhoids were visualized. Patient has seen Dr. Perdomo from [facility] gastroenterology. No fever or chills. Call her physical sciences instructor who told her to come to the emergency room. No lightheadedness. No fainting spells. Pain is about 6 on a scale of 1-10 intermittent in nature and cramping in nature. Patient has also history of gastroesophageal reflux disease. On PPIs 12/04/20 Objective - Constitutional Vitals: Vital Signs - 12hr 12/04/20 12/04/20 16:38 21:57 Temperature 99.1 F 98.9 F Pulse Rate 76 84 Respiratory 22 18 Rate Blood Pressure 146/85 126/75 O2 Sat by Pulse 100 97 Oximetry - Labs CBC & Chem 7: 12/04/20 08:06 12/03/20 04:13 Labs: Abnormal lab results 12/04/20 Range/Units 08:06 WBC 3.0 L (4.5-11.0) K/mm3 RBC 3.52 L (3.65-5.03) M/mm3 RDW 12.9 L (13.2-15.2) %
[2020-12-05] MEDS: PANTOPRAZOLE 40 MG TAB PO SCH (09:11)
[2020-12-05 11:34] LABS: Hemoglobin 11.2 gm/dl (10.1-14.3); Mean Corpuscular HGB Conc 33 % (30-34); Mean Corpuscular Volume 94 fl (79-97); Platelet Count 211 K/mm3 (140-440); Red Blood Count 3.62 M/mm3 (3.65-5.03); Red Cell Distribution Width 13.3 % (13.2-15.2)
[2020-12-05 13:54] VITALS: BP 129/86
[2020-12-05] MEDS ORDERED: oxyCODONE /ACETAMINOPHEN 5-325MG TAB PO PRN (15:02)
--- NOTE | 2020-12-05 15:29 | Discharge Summary ---
Providers - Providers Date of Admission: 12/03/20 12:17 Date of discharge: 12/05/20 Attending physician: RAUDEL PINO 12/02/20 19:27 Consult to Physician [CONS] Urgent Comment: Dr. Rudolph spoke with Dr. Alexis @ [id number] Consulting Provider: CHEYENNE ALEXIS Physician Instructions: Reason For Exam: Post polypectomy bleed Primary care physician: SIDER MECHANIC Hospitalization Condition: Good Hospital course: Subjective Date of service: 12/04/20 Principal diagnosis: Lower GI Bleed Interval history: 50-year-old -Niuean female with history of borderline diabetes comes in for left lower quadrant pain and sonal red blood per rectum. This is a first e pisode of bleeding. Patient had a colonoscopy on Thursday which is 5 days ago and a polyp was removed and hemorrhoids were visualized. Patient has seen Dr. Perdomo from [facility] gastroenterology. No fever or chills. Call her draw hand who told her to come to the emergency room. No lightheadedness. No fainting spells. Pain is about 6 on a scale of 1-10 intermittent in nature and cramping in nature. Patient has also history of gastroesophageal reflux disease. On PPIs 12/04/20 +Doing better Crampy abd pain 12/05 Sx better High fiber diet Assessment and Plan - Patient Problems (1) Gastrointestinal bleed Current Visit: Yes Status: Acute Qualifiers: GI bleed type/associated pathology: unspecified gastrointestinal hemorrhage type Qualified Code(s): K92.2 - Gastrointestinal hemorrhage, unspecified Plan to address problem: # Hematochezia - may be due to diverticular bleed vs hemorrhoids. - colonoscopy on 11/26/2020 with small polyps 5 mm removed with cold forcep. - no active bleeding at this time. - H/H stable. Rec - advance diet as tolerated today. - conservative management - no plans for colonoscopy unless recurrent bleeding. - if tolerating diet and no bleeding, ok for discharge tomorrow. Follow up with outpatient GI (2) Sigmoid diverticulosis Current Visit: Yes Status: Chronic Plan to address problem: On the CAT scan---Sig May be the source of the bleeding (3) Hypertension Current Visit: Yes Status: Chronic Qualifiers: Hypertension type: essential hypertension Qualified Code(s): I10 - Essential (primary) hypertension (4) GERD (gastroesophageal reflux disease) Current Visit: Yes Status: Chronic Qualifiers: Esophagitis presence: with esophagitis Plan to address problem: On IV Protonix for now changed to oral Protonix in 24 to 48 hours (5) DVT prophylaxis Current Visit: Yes Status: Acute Plan to address problem: On SCDs and GI prophylaxis Disposition: DC-01 TO HOME OR SELFCARE Final Discharge Diagnosis (Prints w/discharge instructions): Lower GI bleed. Diverticulosis Time spent for discharge: 34 min - Discharge Diagnoses (1) Gastrointestinal bleed Status: Acute Qualifiers: GI bleed type/associated pathology: unspecified gastrointestinal hemorrhage type Qualified Code(s): K92.2 - Gastrointestinal hemorrhage, unspecified Comment: Stable (2) Sigmoid diverticulosis Status: Chronic (3) Hypertension Status: Chronic Qualifiers: Hypertension type: essential hypertension Qualified Code(s): I10 - Essential (primary) hypertension (4) GERD (gastroesophageal reflux disease) Status: Chronic Qualifiers: Esophagitis presence: with esophagitis (5) DVT prophylaxis Status: Acute Core Measure Documentation - Palliative Care Palliative Care/ Comfort Measures: Not Applicable - Core Measures Any of the following diagnoses?: none Exam - Constitutional Vitals: Temp Pulse Resp BP Pulse Ox 98.1 F 73 22 129/86 100 12/05/20 11:44 12/05/20 11:44 12/05/20 11:44 12/05/20 11:44 12/05/20 11:44 General appearance: Present: no acute distress, well-nourished - EENT Eyes: Present: PERRL ENT: hearing intact, clear oral mucosa - Neck Neck: Present: supple, normal ROM - Respiratory Respiratory effort: normal Respiratory: bilateral: CTA - Cardiovascular Heart rate: 78 Rhythm: regular Heart Sounds: Present: S1 & S2. Absent: rub, click - Extremities Extremities: pulses symmetrical, No edema Peripheral Pulses: within normal limits - Abdominal General gastrointestinal: Present: soft, non-tender, non-distended, normal bowel sounds Female genitourinary: Present: normal - Integumentary Integumentary: Present: clear, warm, dry - Musculoskeletal Musculoskeletal: gait normal, strength equal bilaterally - Psychiatric Psychiatric: appropriate mood/affect, intact judgment & insight - Neurologic Neurologic: CNII-XII intact, moves all extremities Plan Activity: no restrictions Diet: regular Follow up with: PRIMARY CARE, [Primary Care Provider] - 3-5 Days MIN,PRABHJOT SANCHEZ MD [Staff Physician] - 7 Days Forms: Accompanied Note
== END 2020-12-05 16:28 | disposition home or self-care (01) | DRG 379 ==
LOC: ED 15:41 → INTOOBSV 21:58 → 3B-SURG 21:58 → OBSVTOIN 12-03 12:17 → 3A 12-03 16:29
PROVIDERS: ADMIT Internal Medicine; ATTEND Internal Medicine
DX: K57.31 Diverticulosis of large intestine without perforation or abscess with bleeding (principal); I10 Essential (primary) hypertension; E11.9 Type 2 diabetes mellitus without complications; Z90.710 Acquired absence of both cervix and uterus; K21.00 Gastro-esophageal reflux disease with esophagitis, without bleeding; K64.9 Unspecified hemorrhoids; Z86.010 Personal history of colon polyps; Z90.49 Acquired absence of other specified parts of digestive tract; Z87.891 Personal history of nicotine dependence
CPT/HCPCS: 36415; 74177; 80053; 82550; 83036; 83735; 85014; 85018; 85025; 85027; 85610; 85730; 86850; 86900; 86901; 96365; 96375; G0378; C9113; J1170; J1200; J2270; J2405; J7030; J7042; Q9967

== ENCOUNTER 2020-12-14 12:54 | Emergency (ER) | payer BC ==
--- NOTE | 2020-12-14 15:31 | Event Note ---
ED Screening Note Date of service: 12/14/20 Time: 15:30 ED Screening Note: 50-year-old female patient with history of borderline diabetes, hypertension, and tobacco use (in remission) presents to emergency department with complaints of chest pain waking her up from her sleep this morning. Patient describes the pain as "pressure," constant, no exacerbating relieving factors identified. Patient endorses nausea and vomiting today; states she has been experiencing ongoing GI symptoms for a few weeks, since she was discharged from the hospital earlier this month. No known history of coronary artery disease. Hypertensive in triage. General: Awake, appropriately interactive, no acute distress. Neck: Supple. Full range of motion intact. Cardiovascular: Normal peripheral perfusion. Pulmonary: No respiratory distress. Patient is speaking normally without use of accessory muscles. Skin: No apparent rashes or lesions. Neurological: No facial asymmetry. Speech is clear. Follows commands. Patient is alert and oriented. Musculoskeletal: Moves all four extremities spontaneously with normal range of motion. Psych: Cooperative. Appropriate mood and affect. I have greeted and performed a focused rapid initial assessment of this patient. A comprehensive ED assessment and evaluation of the patient, analysis of all test results, and completion of the medical decision-making process will be conducted by additional ED providers. This initial assessment/diagnostic orders/clinical plan/treatment(s) is/are subject to change based on patients health status, clinical progression and re-assessment. Further treatment and workup at subsequent clinical provider's discretion. Patient/guardian urged not to elope from the ED as their condition may be serious if not clinically assessed and managed.
[2020-12-14 16:09] LABS: Eosinophils # (Auto) 0.1 K/mm3 (0.0-0.4); Eosinophils % (Auto) 1.7 % (0.0-4.3); Hematocrit 35.4 % (30.3-42.9); Hemoglobin 11.9 gm/dl (10.1-14.3); Lymphocytes % (Auto) 45.5 % (13.4-35.0); Mean Corpuscular HGB Conc 34 % (30-34); Mean Corpuscular Volume 94 fl (79-97); Monocytes # (Auto) 0.4 K/mm3 (0.0-0.8); Monocytes % (Auto) 10.3 % (0.0-7.3); Platelet Count 229 K/mm3 (140-440); Red Blood Count 3.75 M/mm3 (3.65-5.03); Red Cell Distribution Width 13.8 % (13.2-15.2)
[2020-12-14 16:17] LABS: Alanine Aminotransferase 28 units/L (7-56); Albumin 4.3 g/dL (3.9-5); BUN/Creatinine Ratio 17; Blood Urea Nitrogen 12 mg/dL (7-17); Calcium 9.2 mg/dL (8.4-10.2); Hemolysis Index 6
--- NOTE | 2020-12-14 16:49 | XRay Report ---
XR chest routine 2V INDICATION / CLINICAL INFORMATION: chest pain. COMPARISON: None available. FINDINGS: SUPPORT DEVICES: None. HEART /PULMONARY VASCULATURE: No significant abnormality. LUNGS / PLEURA: No significant pulmonary or pleural abnormality. No pneumothorax. ADDITIONAL FINDINGS: No significant additional findings. IMPRESSION: 1. No acute findings. Signer Name: Julio Cornejo MD Signed: 12/14/2020 4:45 PM Workstation Name: [id number]
[2020-12-14] MEDS ORDERED: MORPHINE 4 MG/1 ML INJ IV ONE (23:56)
[2020-12-14] MEDS ORDERED: ONDANSETRON 4 MG/2 ML INJ IV ONE (23:56)
--- NOTE | 2020-12-15 00:01 | Emergency Department Report ---
ED Chest Pain HPI - General Chief Complaint: Chest Pain Stated Complaint: CHESTPAIN/NAUSEA/ABD PAIN Time Seen by Provider: 12/14/20 23:45 Source: patient Mode of arrival: Ambulatory Limitations: No Limitations - History of Present Illness Initial Comments: This is a 50-year-old female who presents to the emergency department with the complaints of abdominal pain, left-sided chest pain, diarrhea, nausea and vomiting. The patient was admitted here on 12/02 when she came in for left lower quadrant abdominal pain, hematochezia. She had recently and previously had a colonoscopy that showed some polyps. She had a CT scan of the abdomen and pelvis during that admission that showed diverticulosis without diverticulitis. She had a GI consult that says that the patient has probable IBS and that the hematochezia was secondary to polyps versus hemorrhoids. The patient says that she did have some improvement upon discharge but once again started having lower abdominal pain starting on Thursday, 2 days ago. The pain worsens, and the patient develops some diarrhea, when she tries to eat or drink anything. This morning the patient woke up with left-sided chest pain. She says it feels like a pressure sensation as if she is full of air and is currently 8 out of 10 in intensity. No known aggravating or alleviating factors. She denies any fever, shortness of breath, back pain, cough, dysuria. Patient says that she tried to take her Zofran ODT and Percocet but had some difficulty with the nausea and vomiting. She believes that the nausea and vomiting came on after taking the Bentyl, one of the medications that is being used to treat her IBS. She also has a past medical history of endometriosis but says that this does not feel similar. She is a former smoker. She denies any illicit drug use. Her mother had an ID at the age of 55. No recent travel or sick contacts at home. - Related Data Previous Rx's Medication Instructions Recorded Last Taken Type Pantoprazole [Protonix TAB] 40 mg PO QDAC #30 tablet 12/05/20 Unknown Rx oxyCODONE /ACETAMINOPHEN [Percocet 1 tab PO Q4H PRN #15 tablet 12/05/20 Unknown Rx 5/325 mg] Allergies Allergy/AdvReac Type Severity Reaction Status Date / Time meperidine [From Demerol] Allergy Unknown Verified 12/15/20 01:10 ketorolac [From Toradol] AdvReac Hives Verified 12/15/20 01:10 Heart Score - HEART Score History: Slightly suspicious EKG: Normal Age: 45-65 Risk factors: 1-2 risk factors Troponin: < normal limit HEART Score: 2 - EKG Read Time Time EKG Completed: 13:04 EKG Read Time: 13:07 - Critical Actions Critical Actions: 0-3 pts:0.9-1.7%risk of adverse cardiac event.Candidate for discharge ED Review of Systems ROS: Stated complaint: CHESTPAIN/NAUSEA/ABD PAIN Other details as noted in HPI Comment: All other systems reviewed and negative Constitutional: denies: chills, fever Eyes: denies: eye pain, vision change ENT: denies: ear pain, throat pain Respiratory: denies: cough, shortness of breath Cardiovascular: chest pain. denies: palpitations, edema Gastrointestinal: abdominal pain, nausea, vomiting, diarrhea Genitourinary: denies: dysuria, discharge Musculoskeletal: denies: back pain, arthralgia Skin: denies: rash, lesions Neurological: denies: weakness, numbness ED Past Medical Hx - Past Medical History Previous Medical History?: Yes Hx Congestive Heart Failure: No Hx Diabetes: No Hx Asthma: No Hx COPD: No Hx HIV: No Additional medical history: Colon polyps - Surgical History Past Surgical History?: Yes Additional Surgical History: Colonoscopy - Social History Smoking Status: Former Smoker Substance Use Type: None - Medications Home Medications: Home Medications Medication Instructions Recorded Confirmed Last Taken Type Pantoprazole [Protonix TAB] 40 mg PO QDAC #30 tablet 12/05/20 Unknown Rx oxyCODONE /ACETAMINOPHEN [Percocet 1 tab PO Q4H PRN #15 tablet 12/05/20 Unknown Rx 5/325 mg] ED Physical Exam - General Limitations: No Limitations - Other Other exam information: GENERAL: The patient is well-developed well-nourished. HENT: Normocephalic. Atraumatic. Patient has moist mucous membranes. EYES: Extraocular motions are intact. NECK: Supple. Trachea is midline. CHEST/LUNGS: Clear to auscultation. There is no respiratory distress noted. HEART/CARDIOVASCULAR: Regular. There is no tachycardia. There is no murmur. ABDOMEN: Abdomen is soft. Left lower quadrant abdominal tenderness to palpation. No guarding. No peritoneal signs with heel strike. Patient has normal bowel sounds. There is no abdominal distention. SKIN: Skin is warm and dry. NEURO: The patient is awake, alert, and oriented. The patient is cooperative. The patient has no focal neurologic deficits. Normal speech. MUSCULOSKELETAL: There is no tenderness or deformity. There is no limitation range of motion. ED Course Vital Signs 12/14/20 12/15/20 12/15/20 13:01 00:12 00:24 Temperature 98.5 F 98.2 F Pulse Rate 74 70 Respiratory 14 16 16 Rate Blood Pressure 187/106 Blood Pressure 169/101 [Right] O2 Sat by Pulse 100 100 Oximetry 12/15/20 12/15/20 12/15/20 00:53 01:18 01:48 Temperature Pulse Rate Respiratory 16 16 16 Rate Blood Pressure Blood Pressure [Right] O2 Sat by Pulse Oximetry 12/15/20 02:18 Temperature 98.1 F Pulse Rate 78 Respiratory 16 Rate Blood Pressure Blood Pressure 157/88 [Right] O2 Sat by Pulse 98 Oximetry GUERDA score - Guerda Score Age > 65: (0) No Aspirin use within the Past 7 Days: (0) No 3 or more CAD Risk Factors: (0) No 2 or more Angina events in past 24 hrs: (1) Yes Known CAD with more than 50% Stenosis: (0) No Elevated Cardiac Markers: (0) No ST Deviation Greater than 0.5mm: (0) No GUERDA Score: 1 ED Medical Decision Making - Lab Data Result diagrams: 12/14/20 15:36 12/14/20 15:36 Lab Results 12/14/20 12/14/20 12/14/20 Range/Units 15:36 15:36 15:36 WBC 4.3 L (4.5-11.0) K/mm3 RBC 3.75 (3.65-5.03) M/mm3 Hgb 11.9 (10.1-14.3) gm/dl Hct 35.4 (30.3-42.9) % MCV 94 (79-97) fl MCH 32 (28-32) pg MCHC 34 (30-34) % RDW 13.8 (13.2-15.2) % Plt Count 229 (140-440) K/mm3 Lymph % (Auto) 45.5 H (13.4-35.0) % Hall % (Auto) 10.3 H (0.0-7.3) % Eos % (Auto) 1.7 (0.0-4.3) % Baso % (Auto) 1.0 (0.0-1.8) % Lymph # (Auto) 2.0 (1.2-5.4) K/mm3 Hall # (Auto) 0.4 (0.0-0.8) K/mm3 Eos # (Auto) 0.1 (0.0-0.4) K/mm3 Baso # (Auto) 0.0 (0.0-0.1) K/mm3 Seg Neutrophils % 41.5 (40.0-70.0) % Seg Neutrophils # 1.8 (1.8-7.7) K/mm3 Sodium 143 (137-145) mmol/L Potassium 4.2 (3.6-5.0) mmol/L Chloride 105.6 (98-107) mmol/L Carbon Dioxide 29 (22-30) mmol/L Anion Gap 13 mmol/L BUN 12 (7-17) mg/dL Creatinine 0.7 (0.6-1.2) mg/dL Estimated GFR > 60 ml/min BUN/Creatinine Ratio 17 % Glucose 91 (65-100) mg/dL Calcium 9.2 (8.4-10.2) mg/dL Magnesium 2.10 (1.7-2.3) mg/dL Total Bilirubin 0.30 (0.1-1.2) mg/dL AST 26 (5-40) units/L ALT 28 (7-56) units/L Alkaline Phosphatase 95 (35-129) units/L Troponin T < 0.010 (0.00-0.029) ng/mL Total Protein 6.6 (6.3-8.2) g/dL Albumin 4.3 (3.9-5) g/dL Albumin/Globulin Ratio 1.9 % HCG, Qual Negative (Negative) 12/14/20 12/15/20 Range/Units 22:51 00:24 WBC (4.5-11.0) K/mm3 RBC (3.65-5.03) M/mm3 Hgb (10.1-14.3) gm/dl Hct (30.3-42.9) % MCV (79-97) fl MCH (28-32) pg MCHC (30-34) % RDW (13.2-15.2) % Plt Count (140-440) K/mm3 Lymph % (Auto) (13.4-35.0) % Hall % (Auto) (0.0-7.3) % Eos % (Auto) (0.0-4.3) % Baso % (Auto) (0.0-1.8) % Lymph # (Auto) (1.2-5.4) K/mm3 Hall # (Auto) (0.0-0.8) K/mm3 Eos # (Auto) (0.0-0.4) K/mm3 Baso # (Auto) (0.0-0.1) K/mm3 Seg Neutrophils % (40.0-70.0) % Seg Neutrophils # (1.8-7.7) K/mm3 Sodium (137-145) mmol/L Potassium (3.6-5.0) mmol/L Chloride (98-107) mmol/L Carbon Dioxide (22-30) mmol/L Anion Gap mmol/L BUN (7-17) mg/dL Creatinine (0.6-1.2) mg/dL Estimated GFR ml/min BUN/Creatinine Ratio % Glucose (65-100) mg/dL Calcium (8.4-10.2) mg/dL Magnesium (1.7-2.3) mg/dL Total Bilirubin (0.1-1.2) mg/dL AST (5-40) units/L ALT (7-56) units/L Alkaline Phosphatase (35-129) units/L Troponin T < 0.010 < 0.010 (0.00-0.029) ng/mL Total Protein (6.3-8.2) g/dL Albumin (3.9-5) g/dL Albumin/Globulin Ratio % HCG, Qual (Negative) - EKG Data -: EKG Interpreted by Nm EKG shows normal: sinus rhythm, axis, intervals, QRS complexes (LVH), ST-T waves Rate: normal - EKG Data When compared to previous EKG there are: previous EKG unavailable Interpretation: LVH - Radiology Data Radiology results: image reviewed interpreted by me: Chest x-ray does not show any acute process. There are no pleural effusions, obvious pneumonia and there is no pneumothorax. No significant cardiomegaly. - Medical Decision Making This patient presents to the emergency department with a complaint of lower abdominal pain, mostly in the left lower quadrant, as well as some midsternal to left-sided chest pain, and some nausea with vomiting. Patient does have some reproducible left lower quadrant abdominal pain to palpation. However there is no abdominal distention, no guarding, no peritoneal signs. EKG did not have any morphology consistent with ST elevation myocardial infarction. Chest x-ray did not have any signs of pneumonia, pleural effusions, pneumothorax, or any other acute process. Patient's labs have been unremarkable including CBC, metabolic panel, negative troponins x3, urinalysis. Regarding the abdominal pains, the patient has had a recent GI work-up. She had a colonoscopy within the last month. She was admitted to this hospital a few weeks ago and had a gastroenterology consultation. She also had a CT scan of the abdomen and pelvis that did not show any acute process other than some diverticulosis without diverticulitis. Patient was given some IV analgesia and antiemetics. There has been no further vomiting while in the emergency department and she was able to pass an oral challenge. Patient's abdominal pain was greatly decreased prior to discharge. The patient's chest pain also improved prior to discharge. She is low on the heart and GUERDA score. She is low on the Wells score criteria and negative on the pulmonary embolism rule out criteria. Vital signs have been reassuring throughout her ED course including being afebrile. For all these reasons the patient appears safe for discharge home at this time. She has been instructed to follow-up with her primary care physician and her astroenterologist. Her contact information has been sent over to the [facility], and someone from their office should be contacting her shortly for close outpatient follow-up as per our hospitals low risk chest pain protocol. Critical Care Time: No Critical care attestation.: If time is entered above; I have spent that time in minutes in the direct care of this critically ill patient, excluding procedure time. ED Disposition Clinical Impression: Lower abdominal pain Chest pain Qualifiers: Chest pain type: unspecified Qualified Code(s): R07.9 - Chest pain, unspecified Nausea & vomiting Qualifiers: Vomiting type: unspecified Vomiting Intractability: unspecified Qualified Code(s): R11.2 - Nausea with vomiting, unspecified Hypertension Qualifiers: Hypertension type: essential hypertension Qualified Code(s): I10 - Essential (primary) hypertension Disposition: TO HOME OR SELFCARE Is pt being admited?: No Condition: Stable Instructions: Abdominal Pain, Adult, Nonspecific Chest Pain, Adult, Vomiting, Adult, Hypertension, Adult, Hypertension (ED) Additional Instructions: Please follow-up with your primary care physician in the next few days. Please follow-up with your marine radio installer and servicer regarding the lower abdominal pains. I am sending your contact information over to the [facility], and someone from their office should be contacting you shortly for close outpatient follow-up. Just in case, I am giving you a referral for one of their station examiner, Dr. Wei. Take your medications as prescribed. Return to the emergency department with any worsening of your symptoms, new or concerning symptoms not addressed during this current emergency department visit, or with any acute distress. Referrals: PRIMARY CAREMD [Primary Care Provider] - 2-3 Days RIAN WEI MD [Staff Physician] - 2-3 Days DAVEY FAUST MD [Staff Physician] - 2-3 Days Time of Disposition: 02:36
[2020-12-15] MEDS ORDERED: diphenhydrAMINE 50 MG/ML VIAL ONE (00:28)
[2020-12-15] MEDS ORDERED: diphenhydrAMINE 50 MG/ML VIAL IV ONE (00:28)
[2020-12-15] MEDS ORDERED: SODIUM CHLORIDE 0.9% 500 ML 500 ML IV ONE (00:41)
[2020-12-15] MEDS ORDERED: HYDROmorphone 1 MG/1 ML INJ IV ONE (01:11)
[2020-12-15] MEDS ORDERED: METOCLOPRAMIDE 10 MG/2 ML INJ IV ONE (02:18)
[2020-12-15 02:19] VITALS: BP 157/88
[2020-12-15] MEDS ORDERED: METOCLOPRAMIDE 10 MG/2 ML INJ ONE (02:20)
--- NOTE | 2020-12-17 11:42 | Electrocardiograph Report ---
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
== END 2020-12-15 02:55 | disposition home or self-care (01) ==
LOC: ED 12:54
DX: I10 Essential (primary) hypertension (principal); R11.2 Nausea with vomiting, unspecified; R10.30 Lower abdominal pain, unspecified; R07.9 Chest pain, unspecified; Z88.8 Allergy status to other drugs, medicaments and biological substances; Z79.899 Other long term (current) drug therapy; Z87.891 Personal history of nicotine dependence; Z98.890 Other specified postprocedural states
CPT/HCPCS: 36415; 71046; 80053; 83735; 84484; 84703; 85025; 93005; 96361; 96374; 96375; 99284; J1170; J1200; J2270; J2405; J2765; J7040

== ENCOUNTER 2021-03-29 12:19 | Emergency (ER) | payer BC ==
[2021-03-29 12:39] VITALS: BP 166/98
[2021-03-29 13:18] LABS: Basophils % (Auto) 0.5 % (0.0-1.8); Eosinophils # (Auto) 0.1 K/mm3 (0.0-0.4); Eosinophils % (Auto) 1.6 % (0.0-4.3); Hematocrit 37.4 % (30.3-42.9); Hemoglobin 12.5 gm/dl (10.1-14.3); Lymphocytes % (Auto) 20.8 % (13.4-35.0); Mean Corpuscular HGB Conc 34 % (30-34); Mean Corpuscular Volume 97 fl (79-97); Monocytes # (Auto) 0.6 K/mm3 (0.0-0.8); Monocytes % (Auto) 11.3 % (0.0-7.3); Platelet Count 247 K/mm3 (140-440); Red Blood Count 3.87 M/mm3 (3.65-5.03); Red Cell Distribution Width 13.8 % (13.2-15.2)
--- NOTE | 2021-03-29 13:37 | Event Note ---
ED Screening Note Date of service: 03/29/21 Time: 13:32 ED Screening Note: The patient was evaluated in the emergency department for symptoms described in the history of present illness. He/she was evaluated in the context of the global COVID-19 pandemic, which necessitated consideration that the patient might be at risk for infection with the virus that causes COVID-19. Institutional protocols and algorithms that pertain to the evaluation of patients at risk for COVID-19 are in a state of rapid change based on information released by regulatory bodies including the CDC and federal and state organizations. These policies and algorithms were followed during the patient's care in the emergency department. Please note that these policies, procedures and recommendations changed on a rapid basis. 50-year-old -[place] female presents to the emergency room complaining of bright red blood per rectal for 1 week. She complains of abdominal pain that is located mostly on the left lower quadrant that started yesterday. She also reports diarrhea that started yesterday. Patient does report a history of rectal bleeding and was seen here in the hospital and they ruled out diverticulitis. Patient reports he did recommend having her gallbladder removed and is not functioning totally. Patient reports she has multiple abdominal surgery including gastric sleeve partial hysterectomy tummy tuck with hernia repair, tubal ligation appendectomy and scar tissue removal. Patient reports she has been taking Imodium A-D for the diarrhea with no improvement. She reports she is been having some nausea and vomiting. Patient reports a history of GERD and is currently taking omeprazole. She he has a primary care provider at [facility] in [place]. She is followed by pain management provider. She states that she even took pain medicine thinking that it would help. Bina ent endorsed that she started having cold-like symptoms yesterday and is not vaccinated. Patient reports she is allergic to Toradol and Demerol. This initial assessment/diagnostic orders/clinical plan/treatment(s) is/are subject to change based on patients health status, clinical progression and re- assessment by fellow clinical providers in the ED. Further treatment and workup at subsequent clinical providers discretion. Patient/guardian urged not to elope from the ED as their condition may be serious if not clinically assessed and managed. Initial orders include: CBC CMP lipase urinalysis INT CT abdomen with contrast
[2021-03-29 13:42] LABS: Alanine Aminotransferase 9 units/L (7-56); Albumin 4.3 g/dL (3.9-5); Blood Urea Nitrogen 11 mg/dL (7-17); Calcium 9.3 mg/dL (8.4-10.2); Hemolysis Index 4
[2021-03-29 13:45] LABS: BUN/Creatinine Ratio 18
[2021-03-29] MEDS ORDERED: ONDANSETRON 4 MG/2 ML INJ IV ONE (14:01)
[2021-03-29] MEDS ORDERED: DICYCLOMINE 20 MG/2 ML INJ IM ONE (14:01)
--- NOTE | 2021-03-29 14:05 | Emergency Department Report ---
ED Abdominal Pain HPI - General Chief Complaint: Abdominal Pain Stated Complaint: NAUSEA/DIARRHEA/STOMACHE ACHE PUI?: No Time Seen by Provider: 03/29/21 13:35 Source: patient Mode of arrival: Ambulatory Limitations: No Limitations - History of Present Illness Initial Comments: Patient presents with abdominal pain. Her symptoms actually started about 1 week prior. She started having left pelvic pain associated with some spots of blood in her stool. She actually did not notice stool as opposed to the bleeding. Initially, the bleeding was on the toilet paper when she wiped. She did have rectal pain associated with this. There was again left pelvic pain associated with this. Patient states that she was out of the state at this time. She chose not to get seen. After a couple of days of the symptoms, she had a bowel movement and her symptoms abated. They have now returned and that is what prompted her visit to the emergency department. She states that she is now having some nausea with vomiting. She has had loose stools. She is still had some spots of blood in her stool. She gets occasional episodes of bright red blood per rectum. She has no fevers or chills per there is no cough or congestion. There is no history of rectal trauma. She has no history of bleeding disorder or bleeding diathesis. She is not anticoagulated. Patient feels some sort of tissue back in the anal area and is not sure what that is related to. Ultimately, she decided to come here for further evaluation and management. She has had symptoms like this before. She been previously admitted. CT previously had failed to demonstrate diverticular disease. Severity scale (0 -10): 9 - Related Data Previous Rx's Medication Instructions Recorded Last Taken Type Pantoprazole [Protonix TAB] 40 mg PO QDAC #30 tablet 12/05/20 Unknown Rx oxyCODONE /ACETAMINOPHEN [Percocet 1 tab PO Q4H PRN #15 tablet 12/05/20 Unknown Rx 5/325 mg] Hydrocortisone [Anusol-Hc 2.5% TOP 30 gm RC DAILY #1 cream..g. 03/29/21 Unknown Rx CREAM] Hyoscyamine Subl [Levsin Sl 0.125 0.125 mg SL Q6HR PRN #20 tab 03/29/21 Unknown Rx TAB] Ondansetron [Zofran Odt] 4 mg PO Q8HR #20 tab.rapdis 03/29/21 Unknown Rx Allergies Allergy/AdvReac Type Severity Reaction Status Date / Time meperidine [From Demerol] Allergy Unknown Verified 12/15/20 01:10 ketorolac [From Toradol] AdvReac Hives Verified 12/15/20 01:10 ED Review of Systems ROS: Stated complaint: NAUSEA/DIARRHEA/STOMACHE ACHE Other details as noted in HPI Comment: All other systems reviewed and negative Constitutional: denies: fever ENT: denies: throat pain Respiratory: denies: cough Cardiovascular: denies: chest pain Endocrine: denies: increased thirst, increased urine Gastrointestinal: as per HPI Genitourinary: denies: dysuria Musculoskeletal: denies: back pain Skin: denies: rash Neurological: denies: headache Hematological/Lymphatic: denies: easy bruising ED Past Medical Hx - Past Medical History Previous Medical History?: No Hx Congestive Heart Failure: No Hx Diabetes: No Hx Asthma: No Hx COPD: No Hx HIV: No Additional medical history: Colon polyps - Surgical History Past Surgical History?: No Additional Surgical History: Colonoscopy - Family History Family history: hypertension - Social History Smoking Status: Former Smoker Substance Use Type: None - Medications Home Medications: Home Medications Medication Instructions Recorded Confirmed Last Taken Type Pantoprazole [Protonix TAB] 40 mg PO QDAC #30 tablet 12/05/20 Unknown Rx oxyCODONE /ACETAMINOPHEN [Percocet 1 tab PO Q4H PRN #15 tablet 12/05/20 Unknown Rx 5/325 mg] Hydrocortisone [Anusol-Hc 2.5% TOP 30 gm RC DAILY #1 cream..g. 03/29/21 Unknown Rx CREAM] Hyoscyamine Subl [Levsin Sl 0.125 0.125 mg SL Q6HR PRN #20 tab 03/29/21 Unknown Rx TAB] Ondansetron [Zofran Odt] 4 mg PO Q8HR #20 tab.rapdis 03/29/21 Unknown Rx ED Physical Exam - General Limitations: No Limitations General appearance: alert, in no apparent distress - Head Head exam: Present: atraumatic, normocephalic - Eye Eye exam: Present: normal appearance, EOMI. Absent: scleral icterus - ENT ENT exam: Present: normal exam, normal orophraynx - Neck Neck exam: Present: normal inspection, full ROM. Absent: meningismus - Respiratory Respiratory exam: Present: normal lung sounds bilaterally, respiratory distress - Cardiovascular Cardiovascular Exam: Present: regular rate, normal rhythm - GI/Abdominal GI/Abdominal exam: Present: soft, tenderness (Mild tenderness in the left pelvic area without rebound or guarding. There is no pulsatile mass.) - Rectal Rectal exam: Present: tenderness (Perianal tenderness is noted with a bleeding hemorrhoid to the left side. This is approximately 1 cm in size.) - Extremities Exam Extremities exam: Present: normal capillary refill. Absent: pedal edema - Back Exam Back exam: Absent: CVA tenderness (R), CVA tenderness (L) - Neurological Exam Neurological exam: Present: alert, abnormal gait. Absent: motor sensory deficit - Psychiatric Psychiatric exam: Present: normal affect, normal mood - Skin Skin exam: Present: warm, dry ED Course Vital Signs 03/29/21 12:38 Temperature 98.5 F Pulse Rate 73 Respiratory 18 Rate Blood Pressure 166/98 [Right] O2 Sat by Pulse 100 Oximetry - Reevaluation(s) Reevaluation #1: 03/29/21 14:05 I did see the patient. CT was canceled as the patient has no indication for emergent CT at this time. Labs and medications have been ordered. ED Medical Decision Making - Lab Data Result diagrams: 03/29/21 12:48 03/29/21 12:48 - Medical Decision Making Patient presents with reports of abdominal pain that been ongoing. She also reported blood in the stools. She does have a hemorrhoid which would account for that. Abdomen remains nonsurgical. There is no rebound or guarding. She is already had a work-up done that was negative for diverticulitis. I do not believe a CT is necessary at this time. There is no dysuria or frequency. I do not believe she has a urinary tract infection. That would not account for blood in the stool. She is not anticoagulated. She certainly could also have a rectal tear or an internal hemorrhoid. She does not need emergent colonoscopy or endoscopy. As the patient is not anticoagulated, I do not believe this would represent coagulopathy. She was treated symptomatically and referred for outpatient evaluation and treatment. Critical Care Time: No Critical care attestation.: If time is entered above; I have spent that time in minutes in the direct care of this critically ill patient, excluding procedure time. ED Disposition Clinical Impression: Left lower quadrant abdominal pain, BRBPR (bright red blood per rectum), External hemorrhoid, bleeding Disposition: HOME / SELF CARE / HOMELESS Is pt being admited?: No Does the pt Need Aspirin: No Condition: Stable Instructions: Abdominal Pain (ED), Hemorrhoids, [id number], Nonsurgical Procedures for Hemorrhoids, Care After, Abdominal Pain, Adult Additional Instructions: Apply warm compresses to the hemorrhoid. Use sitz bath's. Drink plenty water. Return for problems. Continue home medication. Follow-up with your regular doctor for recheck and further treatment. Prescriptions: Hydrocortisone [Anusol-Hc 2.5% TOP CREAM] 30 gm RC DAILY #1 cream..g. Hyoscyamine Subl [Levsin Sl 0.125 TAB] 0.125 mg SL Q6HR PRN #20 tab PRN Reason: Pain , Severe (7-10) Ondansetron [Zofran Odt] 4 mg PO Q8HR #20 tab.[email or web address] Referrals: PRIMARY CARE, [Primary Care Provider] - 3-5 Days
[2021-03-29 16:17] LABS: HCG Qualitative,Urine Negative (Negative)
[2021-03-29 16:30] LABS: Bacteria,Urine 1+ /HPF (Negative); Bilirubin,Urine NEG (Negative); Blood,Urine NEG (Negative); Color,Urine Yellow (Yellow); Mucus,Urine 1+ /HPF; Urobilinogen,Urine < 2.0 mg/dL (<2.0)
== END 2021-03-29 17:50 | disposition home or self-care (01) ==
LOC: ED 12:19
DX: K64.4 Residual hemorrhoidal skin tags (principal); K62.5 Hemorrhage of anus and rectum; Z87.891 Personal history of nicotine dependence; Z88.8 Allergy status to other drugs, medicaments and biological substances; Z79.899 Other long term (current) drug therapy
CPT/HCPCS: 36415; 80053; 81001; 81025; 83690; 85025; 96372; 96374; 99283; J0500; J2405

== ENCOUNTER 2021-08-14 12:02 | Emergency (ER) | payer BC ==
[2021-08-14] MEDS ORDERED: ASPIRIN 325 MG TAB PO ONE (12:07)
[2021-08-14] MEDS ORDERED: ONDANSETRON 4 MG/2 ML INJ IV ONE (12:22)
[2021-08-14] MEDS ORDERED: NITROGLYCERIN 0.4 MG TAB SUBL SL PRN (12:22)
[2021-08-14] MEDS ORDERED: MORPHINE 4 MG/1 ML INJ IV ONE (12:22)
[2021-08-14] MEDS ORDERED: SODIUM CHLORIDE 0.9% 1000 ML 1,000 ML IV ONE (12:22)
--- NOTE | 2021-08-14 12:24 | Emergency Department Report ---
ED General Adult HPI - General Chief complaint: Chest Pain Stated complaint: CHEST PAIN PUI?: No Time Seen by Provider: 08/14/21 12:11 Source: patient, RN notes reviewed, old records reviewed Mode of arrival: Ambulatory Limitations: No Limitations - History of Present Illness Initial comments: The patient was evaluated in the emergency department for symptoms described in the history of present illness. He/she was evaluated in the context of the global COVID-19 pandemic, which necessitated consideration that the patient mi ght be at risk for infection with the virus that causes COVID-19. Institutional protocols and algorithms that pertain to the evaluation of patients at risk for COVID-19 are in a state of rapid change based on information released by regulatory bodies including the CDC and federal and state organizations. These policies and algorithms were followed during the patient's care in the emergency department. Please note that these policies, procedures and recommendations changed on a rapid basis. During the history and physical examination, I am chaperoned by groundwater monitoring technician Dann Sebastian Cardiology: Dr. Calderon Past medical history: CAD, stent, diabetes, hypertension, high cholesterol, not vaccinated to COVID-19, sigmoid diverticulosis, and GERD. The patient is a 51-year-old female who presents to the ER today with a complaint of 2 to 3 days of left lower quadrant/left upper quadrant abdominal pain, with nausea, 4 episodes of yellow diarrhea yesterday, one episode of diarrhea today, no urinary symptoms, also complicated by acute on chronic paralumbar back pain, which does not radiate anywhere, and which she states is typical of her chronic lower back pain, also with a complaint of central nonradiating chest pain, present since yesterday. Patient also endorses recent road trip to [place], over 4 hours. She reports taking multiple medications at home, including aspirin, Naprosyn, Tylenol, and her prescribed opioids, none of which have been successful in alleviating her symptoms. She believes that she had a cardiac catheterization at [facility] last year. She is taking aspirin and Brilinta on a daily basis and is compliant with these medications. She denies diaphoresis. She denies exertional shortness of breath. She denies loss of taste and smell. She denies fever. Chest pain does not have exacerbating or relieving factors. Left lower quadrant abdominal pain increases with palpation, range of motion, and decreases with certain positions. -: Gradual, hour(s), days(s) Location: chest, back, abdomen Severity scale (0 -10): 10 Consistency: other Improves with: other Worsens with: other Associated Symptoms: other - Related Data Home Medications Medication Instructions Recorded Confirmed Last Taken Aspirin [Vazalore] 81 mg PO QAM 08/14/21 08/14/21 08/13/21 81 AtorvaSTATin 80 mg PO QHS 08/14/21 08/14/21 08/13/21 80 Brilinta 90 mg PO BID 08/14/21 08/14/21 08/14/21 90 HYDROcodone/ACETAMINOPHEN 7.5 mg PO Q1WYELL 08/14/21 08/14/21 Unknown [Hydrocodon-Acetamin 7.5-325/15] Lisinopril 2.5 mg PO QAM 08/14/21 08/14/21 08/14/21 2.5 Metoprolol 25 mg PO BID 08/14/21 08/14/21 08/14/21 25 Pantoprazole [Protonix] 40 mg PO QDAY 08/14/21 08/14/21 08/14/21 40 Pregabalin 75 mg PO QHS 08/14/21 08/14/21 08/13/21 75 amLODIPine 5 mg PO QAM 08/14/21 08/14/21 08/14/21 5 Previous Rx's Medication Instructions Recorded Last Taken Type Acetaminophen [Non-Aspirin Extra 500 mg PO Q6HR PRN #30 tablet 08/14/21 Unknown Rx Strength] Ciprofloxacin HCl 500 mg PO BID #14 tab 08/14/21 Unknown Rx Delmis Root [Delmis] 250 mg PO QID PRN #30 capsule 08/14/21 Unknown Rx Hydralazine HCl 25 mg PO BID #30 tab 08/14/21 Unknown Rx Metoclopramide [Reglan] 10 mg PO QID PRN #30 tablet 08/14/21 Unknown Rx Morphine Sulfate [Morphine Sulfate 7.5 mg PO Q6HR PRN #10 tablet 08/14/21 Unknown Rx IR] Pantoprazole Sodium 40 mg PO QDAY #30 tab 08/14/21 Unknown Rx metroNIDAZOLE [Flagyl] 500 mg PO Q8HR #21 tablet 08/14/21 Unknown Rx Allergies Allergy/AdvReac Type Severity Reaction Status Date / Time meperidine [From Demerol] Allergy Unknown Verified 08/14/21 12:43 ketorolac [From Toradol] AdvReac Hives Verified 08/14/21 12:43 ED Review of Systems ROS: Stated complaint: CHEST PAIN Other details as noted in HPI Constitutional: malaise. denies: fever, weakness Eyes: denies: eye discharge ENT: denies: epistaxis Respiratory: denies: cough Cardiovascular: chest pain Gastrointestinal: abdominal pain, nausea, diarrhea Genitourinary: denies: dysuria Musculoskeletal: back pain Neurological: weakness Hematological/Lymphatic: denies: easy bleeding ED Past Medical Hx - Past Medical History Hx Congestive Heart Failure: No Hx Diabetes: No Hx Asthma: No Hx COPD: No Hx HIV: No Additional medical history: Colon polyps - Surgical History Additional Surgical History: Colonoscopy - Social History Smoking Status: Former Smoker Substance Use Type: None - Medications Home Medications: Home Medications Medication Instructions Recorded Confirmed Last Taken Type Acetaminophen [Non-Aspirin Extra 500 mg PO Q6HR PRN #30 tablet 08/14/21 Unknown Rx Strength] Aspirin [Vazalore] 81 mg PO QAM 08/14/21 08/14/21 08/13/21 History 81 AtorvaSTATin 80 mg PO QHS 08/14/21 08/14/21 08/13/21 History 80 Brilinta 90 mg PO BID 08/14/21 08/14/21 08/14/21 History 90 Ciprofloxacin HCl 500 mg PO BID #14 tab 08/14/21 Unknown Rx Delmis Root [Delmis] 250 mg PO QID PRN #30 capsule 08/14/21 Unknown Rx HYDROcodone/ACETAMINOPHEN 7.5 mg PO [id number] 08/14/21 08/14/21 Unknown History [Hydrocodon-Acetamin 7.5-325/15] Hydralazine HCl 25 mg PO BID #30 tab 08/14/21 Unknown Rx Lisinopril 2.5 mg PO QAM 08/14/21 08/14/21 08/14/21 History 2.5 Metoclopramide [Reglan] 10 mg PO QID PRN #30 tablet 08/14/21 Unknown Rx Metoprolol 25 mg PO BID 08/14/21 08/14/21 08/14/21 History 25 Morphine Sulfate [Morphine Sulfate 7.5 mg PO Q6HR PRN #10 tablet 08/14/21 Unknown Rx IR] Pantoprazole Sodium 40 mg PO QDAY #30 tab 08/14/21 Unknown Rx Pantoprazole [Protonix] 40 mg PO QDAY 08/14/21 08/14/21 08/14/21 History 40 Pregabalin 75 mg PO QHS 08/14/21 08/14/21 08/13/21 History 75 amLODIPine 5 mg PO QAM 08/14/21 08/14/21 08/14/21 History 5 metroNIDAZOLE [Flagyl] 500 mg PO Q8HR #21 tablet 08/14/21 Unknown Rx ED Physical Exam - General Limitations: No Limitations General appearance: alert, anxious - Head Head exam: Present: atraumatic, normocephalic - Eye Eye exam: Present: normal appearance, EOMI. Absent: nystagmus - ENT ENT exam: Present: normal exam, normal orophraynx, mucous membranes moist, normal external ear exam - Neck Neck exam: Present: normal inspection, full ROM. Absent: tenderness, meningismus - Respiratory Respiratory exam: Present: normal lung sounds bilaterally. Absent: respiratory distress, wheezes, rales, rhonchi, stridor, decreased breath sounds - Cardiovascular Cardiovascular Exam: Present: regular rate, normal rhythm, normal heart sounds. Absent: bradycardia, tachycardia, irregular rhythm, systolic murmur, diastolic murmur, rubs, gallop - GI/Abdominal GI/Abdominal exam: Present: soft, tenderness, guarding, other (There is left lo wer quadrant, and left flank tenderness. There is voluntary guarding.). Absent: distended, rebound, rigid, pulsatile mass - Extremities Exam Extremities exam: Present: normal inspection, full ROM, other (2+ pulses noted in the bilateral upper and lower extremities. There is no palpable cord. negative Homans sign. Muscular compartments are soft. The pelvis is stable.). Absent: pedal edema, calf tenderness - Back Exam Back exam: Present: normal inspection, full ROM, paraspinal tenderness (There is reproducible paralumbar tenderness). Absent: tenderness, CVA tenderness (R), CVA tenderness (L), vertebral tenderness - Neurological Exam Neurological exam: Present: alert, oriented X3, normal gait, other (No facial droop. Tongue midline. Extraocular movements intact bilaterally. Facial sensation intact to light touch in V1, V2, V3 distribution bilaterally. 5 and a 5 strength in 4 extremities. Sensation intact to light touch in 4 extremities.). Absent: motor sensory deficit - Psychiatric Psychiatric exam: Present: normal affect, normal mood - Skin Skin exam: Present: warm, dry, intact, normal color. Absent: rash ED Course Vital Signs 08/14/21 08/14/21 12:05 12:27 Temperature 98.4 F Pulse Rate 81 Respiratory 16 Rate Blood Pressure 152/101 [Right] O2 Sat by Pulse 100 Oximetry - Reevaluation(s) Reevaluation #1: 08/14/21 12:54 Differential diagnosis, including but not limited to: Colitis, diverticulitis, perforated viscus, obstruction, GERD, gastritis, hiatal hernia, pneumonia, costochondritis, acute coronary syndrome, pulmonary embolism, urinary tract infection, renal colic, pyelonephritis Musculoskeletal back pain Assessment plan: 51-year-old female, with a primary complaint of left lower quadrant abdominal pain, and accompanying central chest pain, recent road trip to [place], greater than 4 hours, not currently tachycardic, tachypneic or hypoxic, secondary complaint of paralumbar back pain. We will send 1 set of troponin; chest pain has been present for over 8 hours. Therefore, as per the [employer] clinical policy, acute myocardial infarction may be ruled out with 1 set of troponin/cardiac enzymes. Given complaint of chest pain, back pain, abdominal pain, recent trip to [place], patient is not low risk/low pretest probability for pulmonary embolism by Wells criteria, and therefore cannot be risk stratified by D-dimer alone, with my clinical gestalt alone. We will therefore obtain a CT angiogram of the chest. Given multiple organ systems and multiple areas of pain, we will withhold systemic anticoagulation, pending results of diagnostic studies, in case this patient has surgical pathology in her abdomen. We will treat her symptoms aggressively, and obtain appropriate laboratory studies. We will also obtain CT scan of the abdomen pelvis and urinalysis. Next I also counseled this patient to consider outpatient COVID-19 vaccination series when she is not medically optimized. I discussed this plan of care with the patient. She is agreeable to the plan of care. Reassess after acquisition of laboratory studies and CT scan. 08/14/21 15:58 Patient reassessed multiple times. CT scan of the chest is negative for acute findings. CT scan of the abdomen pelvis suggests uncomplicated left-sided diverticulitis, consistent with the patient's history and physical examination. Patient was seen and examined by cardiology, nurse practitioner Tonny Gee, working with camp manager on-call, Dr. Pisano The cardiology team advises that this patient had an echocardiogram and stress test last month which were essentially unremarkable for acute or emergent findings, and they advised that from a cardiology perspective, this patient does not require admission, for cardiac risk stratification. This patient is therefore stable for discharge with a trial of oral antibiotics, and outpatient follow-up with GI/primary care, and/or outpatient cardiology. No active vomiting, patient sitting comfortably in stretcher. Uncomplicated diverticulitis does not require emergent gastroenterology consultation, and may be followed up as an outpatient. 08/14/21 16:14 Patient requests refill on pantoprazole. 08/14/21 16:23 - Consultations Consultation #1: 08/14/21 13:49 Discussed the patient's history, physical, laboratory studies EKG findings and clinical impression with nurse practitioner on-call for [facility] cardiology, Mr Marlin Gee Have also transmitted the patient's current EKG and formal EKG. Cardiology team will evaluate the patient shortly, and make further recommendations ED Medical Decision Making - Lab Data Result diagrams: 08/14/21 12:29 08/14/21 12:29 Vital Signs 08/14/21 08/14/21 12:05 12:27 Temperature 98.4 F Pulse Rate 81 Respiratory 16 Rate Blood Pressure 152/101 [Right] O2 Sat by Pulse 100 Oximetry Lab Results 08/14/21 Range/Units 12:29 WBC 5.3 (4.5-11.0) K/mm3 RBC 3.78 (3.65-5.03) M/mm3 Hgb 11.5 (10.1-14.3) gm/dl Hct 36.0 (30.3-42.9) % MCV 95 (79-97) fl MCH 30 (28-32) pg MCHC 32 (30-34) % RDW 15.2 (13.2-15.2) % Plt Count 312 (140-440) K/mm3 Lymph % (Auto) 24.4 (13.4-35.0) % Crowley % (Auto) 7.2 (0.0-7.3) % Eos % (Auto) 3.1 (0.0-4.3) % Baso % (Auto) 0.9 (0.0-1.8) % Lymph # (Auto) 1.3 (1.2-5.4) K/mm3 Crowley # (Auto) 0.4 (0.0-0.8) K/mm3 Eos # (Auto) 0.2 (0.0-0.4) K/mm3 Baso # (Auto) 0.0 (0.0-0.1) K/mm3 Seg Neutrophils % 64.4 (40.0-70.0) % Seg Neutrophils # 3.4 (1.8-7.7) K/mm3 Lab Results 08/14/21 08/14/21 08/14/21 Range/Units 12:29 12:29 12:29 WBC 5.3 (4.5-11.0) K/mm3 RBC 3.78 (3.65-5.03) M/mm3 Hgb 11.5 (10.1-14.3) gm/dl Hct 36.0 (30.3-42.9) % MCV 95 (79-97) fl MCH 30 (28-32) pg MCHC 32 (30-34) % RDW 15.2 (13.2-15.2) % Plt Count 312 (140-440) K/mm3 Lymph % (Auto) 24.4 (13.4-35.0) % Crowley % (Auto) 7.2 (0.0-7.3) % Eos % (Auto) 3.1 (0.0-4.3) % Baso % (Auto) 0.9 (0.0-1.8) % Lymph # (Auto) 1.3 (1.2-5.4) K/mm3 Crowley # (Auto) 0.4 (0.0-0.8) K/mm3 Eos # (Auto) 0.2 (0.0-0.4) K/mm3 Baso # (Auto) 0.0 (0.0-0.1) K/mm3 Seg Neutrophils % 64.4 (40.0-70.0) % Seg Neutrophils # 3.4 (1.8-7.7) K/mm3 PT 12.8 (12.2-14.9) Sec. INR 0.87 (0.87-1.13) D-Dimer 187.64 (0-234) ng/mlDDU Lactic Acid (0.7-2.0) mmol/L Troponin T < 0.010 (0.00-0.029) ng/mL 08/14/21 Range/Units 12:29 WBC (4.5-11.0) K/mm3 RBC (3.65-5.03) M/mm3 Hgb (10.1-14.3) gm/dl Hct (30.3-42.9) % MCV (79-97) fl MCH (28-32) pg MCHC (30-34) % RDW (13.2-15.2) % Plt Count (140-440) K/mm3 Lymph % (Auto) (13.4-35.0) % Crowley % (Auto) (0.0-7.3) % Eos % (Auto) (0.0-4.3) % Baso % (Auto) (0.0-1.8) % Lymph # (Auto) (1.2-5.4) K/mm3 Crowley # (Auto) (0.0-0.8) K/mm3 Eos # (Auto) (0.0-0.4) K/mm3 Baso # (Auto) (0.0-0.1) K/mm3 Seg Neutrophils % (40.0-70.0) % Seg Neutrophils # (1.8-7.7) K/mm3 PT (12.2-14.9) Sec. INR (0.87-1.13) D-Dimer (0-234) ng/mlDDU Lactic Acid 1.00 (0.7-2.0) mmol/L Troponin T (0.00-0.029) ng/mL Vital Signs 08/14/21 08/14/21 12:05 12:27 Temperature 98.4 F Pulse Rate 81 Respiratory 16 Rate Blood Pressure 152/101 [Right] O2 Sat by Pulse 100 Oximetry - EKG Data -: EKG Interpreted by Ca EKG shows normal: sinus rhythm Rate: normal - EKG Data 08/14/21 12:56 The EKG is interpreted by myself at 12: 25 Sinus rhythm, 68 bpm. Normal axis, normal P wave axis. Poor R wave progres rene. Motion artifact. Left ventricular hypertrophy. T wave inversions in the inferior leads. These T wave inversions appear to be new. Otherwise, the EKG today appears to be unchanged when compared to prior EKG from December 14, 2020. This EKG is not a STEMI - Radiology Data Radiology results: report reviewed, image reviewed interpreted by me: 2 view x-ray of the chest, interpreted by myself, clear lungs, no pneumothorax, unremarkable bony anatomy, unremarkable cardiomediastinal silhouette [facility] [address] [place] [address] XRay Report Signed Patient: AGAPITO TRIANA MR#: [id number] : 1970 Acct:[id number] Age/Sex: 51 / F ADM Date: 08/14/21 Loc: ED Attending Dr: Ordering Physician: TONNY MORLEY MD Date of Service: 08/14/21 Procedure(s): XR chest routine 2V Accession Number(s): [id number] cc: TONNY MORLEY MD Fluoro Time In Minutes: XR chest routine 2V INDICATION / CLINICAL INFORMATION: chest pain. COMPARISON: 12/14/2020 FINDINGS: SUPPORT DEVICES: None. HEART /PULMONARY VASCULATURE: No significant abnormality. LUNGS / PLEURA: No sig nificant pulmonary or pleural abnormality. No pneumothorax. ADDITIONAL FINDINGS: No significant additional findings. IMPRESSION: 1. No acute findings. Signer Name: Carlton Cornejo MD Signed: 08/14/2021 1:10 PM Workstation Name: [id number] Transcribed By: JS Dictated By: CARLTON CORNEJO MD Electronically Authenticated By: CARLTON CORNEJO MD Signed Date/Time: 08/14/21 1310 DD/ 1309 CTA CHEST WITH CONTRAST INDICATION : acute chest pain OMNI 350 100ML. TECHNIQUE: Axial imaging performed through the chest, with contrast bolus timing set to maximize opacification of the pulmonary arteries. Sagittal and coronal reformatted images. 3-plane MIP reformatted images were obtained. All CT scans at this location are performed using CT dose reduction for ALARA by means of automated exposure control. Omnipaque 350 100 mL of intravenous contrast administered. COMPARISON: None FINDINGS: Bolus: Contrast bolus timing is adequate. PTE: No filling defect is present to suggest PTE. Mediastinum: Heart and great vessels appear normal. No pathologic mediastinal adenopathy. Lungs: Lungs are clear. Bones: No significant abnormality. Upper abdomen: Limited imaging of the upper abdomen shows nothing acute. Gastric sleeve surgical changes are suspected. IMPRESSION: Negative for PTE. Clear lungs. Signer Name: Jaron Underwood Jr, MD Signed: 08/14/2021 2:19 PM Workstation Name: [id number] CT abdomen pelvis w con INDICATION / CLINICAL INFORMATION: acute llq abd pain. TECHNIQUE: Axial CT images were obtained through the abdomen and pelvis after IV contrast. All CT scans at this location are performed using CT dose reduction for ALARA by means of automated exposure control. COMPARISON: CT dated 12/02/2020 FINDINGS: LOWER CHEST: No significant abnormality LIVER: Small right hepatic cyst. GALLBLADDER/BILIARY TREE: No significant abnormality PANCREAS: No significant abnormality SPLEEN: No significant abnormality ADRENALS: No significant abnormality KIDNEYS / URETER: No significant abnormality URINARY BLADDER: Bladder is partially decompressed, though grossly unremarkable. REPRODUCTIVE ORGANS: Uterus is absent. There is a stable 2.7 cm cyst in the right adnexa. STOMACH / BOWEL: Postoperative changes of the stomach. Small bowel in caliber. There is mild diffuse wall thickening and pericolonic inflammatory stranding of the colon extending from the splenic flexure to to the sigmoid. This likely reflects diffuse colitis. There are scattered colonic diverticula without evidence of localized diverticulitis. Appendix is not visualized. LYMPH NODES: No significant adenopathy. VASCULATURE: No significant abnormality. OTHER: Small volume free fluid in the pelvis is likely reactive. No organized collection. No free air. SKELETAL SYSTEM: No acute osseous findings. IMPRESSION: 1. Findings most consistent with mild acute infectious or inflammatory colitis of the colon, extending from the splenic flexure to the sigmoid. 2. Scattered sigmoid diverticulosis without evidence of localized diverticulitis. 3. 2.7 cm cyst in the right adnexa, stable from prior study. This may reflect a paraovarian cyst. Recommend follow-up ultrasound in 6-12 months. Follow-up for Incidental Adnexal Cystic Mass on CT or MRI ( 1 cm)* *Based on the 2013 White Paper of the [employer] Incidental Findings Committee on Adnexal Findings Benign cyst, early post-menopausal (50-55 yo) Early post-menopausal with benign appearing cyst (oval/round, unilocular, imperceptible wall; uniform fluid; no solid/mural nodule): <= 3 cm - Benign; no follow-up recommended 3-5 cm - Ultrasound follow-up recommended at 6-12 mo > 5 cm - Ultrasound should be performed promptly for further characterization Signer Name: Carlton Cornejo MD Signed: 08/14/2021 2:36 PM Workstation Name: [id number] Critical care attestation.: If time is entered above; I have spent that time in minutes in the direct care of this critically ill patient, excluding procedure time. ED Disposition Clinical Impression: Acute chest pain, Acute abdominal pain, Diverticulitis Disposition: HOME / SELF CARE / HOMELESS Is pt being admited?: No Does the pt Need Aspirin: No Condition: Good Instructions: Nonspecific Chest Pain, Adult, Diverticulitis, Chest Pain (ED) Additional Instructions: Do not take metformin medication for the next 2 days, if patient takes this med ication. CT scan of the abdomen pelvis suggested uncomplicated distal sigmoid diverticulitis. Please take the pain medication, nausea medication, and antibiotics as directed. Minimize/avoid consumption of Motrin, ibuprofen, Naprosyn, Aleve. Continue current outpatient medications. We do recommend follow-up with a operations research analyst within the next 7 to 10 days for a repeat checkup and evaluation. It is also important to follow-up with outpatient GI for outpatient evaluation for repeat colonoscopy, to make certain that this patient does not have a colonic cancer, tumor, malignancy. CT scan of the chest showed no acute findings, and the patient's cardiology team reports that she has had a stress test and cardiac work-up recently as an outpatient, and have not recommended admission from a cardiac perspective. Please follow-up with your outpatient camp manager within the next 7 to 10 days. Please have your primary care doctor or GI physician contact the medical records department to obtain copies of laboratory studies and radiology studies. Do not consume alcohol while taking the prescribed medications. Please return to the emergency room right away with new pain, worsened pain, migration of pain, projectile vomiting, change in mental status, confusion, inability tolerate liquid feeds, new, worsened or different symptoms not present on the initial emergency room evaluation Prescriptions: Ciprofloxacin HCl 500 mg PO BID #14 tab metroNIDAZOLE [Flagyl] 500 mg PO Q8HR #21 tablet Delmis Root [Delmis] 250 mg PO QID PRN #30 capsule PRN Reason: Nausea Hydralazine HCl 25 mg PO BID #30 tab Morphine Sulfate [Morphine Sulfate IR] 7.5 mg PO Q6HR PRN #10 tablet PRN Reason: Pain , Severe (7-10) Acetaminophen [Non-Aspirin Extra Strength] 500 mg PO Q6HR PRN #30 tablet PRN Reason: Pain , Severe (7-10) Pantoprazole Sodium 40 mg PO QDAY #30 tab Metoclopramide [Reglan] 10 mg PO QID PRN #30 tablet PRN Reason: Nausea Referrals: [facility] [Provider Group] - 3-5 Days [facility] [Provider Group] - 3-5 Days Forms: Work/School Release Form(ED) Heart Score - HEART Score History: Slightly suspicious EKG: Non-specific Age: 45-65 Risk factors: > 3 risk factors or hx of atherosclerotic disease Troponin: < normal limit HEART Score: 4 - EKG Read Time Time EKG Completed: 12:25 EKG Read Time: 12:25 - Critical Actions Critical Actions: 4-6 pts:12-16.6% risk of adverse cardiac event. Should be admitted
[2021-08-14 12:55] LABS: Basophils % (Auto) 0.9 % (0.0-1.8); Eosinophils # (Auto) 0.2 K/mm3 (0.0-0.4); Eosinophils % (Auto) 3.1 % (0.0-4.3); Hemoglobin 11.5 gm/dl (10.1-14.3); Lymphocytes # (Auto) 1.3 K/mm3 (1.2-5.4); Lymphocytes % (Auto) 24.4 % (13.4-35.0); Mean Corpuscular HGB Conc 32 % (30-34); Mean Corpuscular Volume 95 fl (79-97); Monocytes # (Auto) 0.4 K/mm3 (0.0-0.8); Monocytes % (Auto) 7.2 % (0.0-7.3); Platelet Count 312 K/mm3 (140-440); Red Blood Count 3.78 M/mm3 (3.65-5.03); Red Cell Distribution Width 15.2 % (13.2-15.2)
[2021-08-14 13:03] LABS: INR 0.87 (0.87-1.13)
--- NOTE | 2021-08-14 13:14 | XRay Report ---
XR chest routine 2V INDICATION / CLINICAL INFORMATION: chest pain. COMPARISON: 12/14/2020 FINDINGS: SUPPORT DEVICES: None. HEART /PULMONARY VASCULATURE: No significant abnormality. LUNGS / PLEURA: No significant pulmonary or pleural abnormality. No pneumothorax. ADDITIONAL FINDINGS: No significant additional findings. IMPRESSION: 1. No acute findings. Signer Name: Julio Cornejo MD Signed: 08/14/2021 1:10 PM Workstation Name: [id number]
[2021-08-14 13:23] LABS: Alanine Aminotransferase 33 units/L (7-56); Albumin 4.4 g/dL (3.9-5); Blood Urea Nitrogen 13 mg/dL (7-17); Calcium 9.5 mg/dL (8.4-10.2); Hemolysis Index 24
[2021-08-14 13:30] LABS: BUN/Creatinine Ratio 26
[2021-08-14 14:18] LABS: Bacteria,Urine 1+ /HPF (Negative); Bilirubin,Urine NEG (Negative); Blood,Urine NEG (Negative); Color,Urine Yellow (Yellow); Protein,Urine <15 mg/dL mg/dL (Negative); Urobilinogen,Urine < 2.0 mg/dL (<2.0)
--- NOTE | 2021-08-14 15:24 | Cat Scan Report ---
CTA CHEST WITH CONTRAST INDICATION : acute chest pain OMNI 350 100ML. TECHNIQUE: Axial imaging performed through the chest, with contrast bolus timing set to maximize opa cification of the pulmonary arteries. Sagittal and coronal reformatted images. 3-plane MIP reformatte d images were obtained. All CT scans at this location are performed using CT dose reduction for ALAR A by means of automated exposure control. Omnipaque 350 100 mL of intravenous contrast administered. COMPARISON: None FINDINGS: Bolus: Contrast bolus timing is adequate. PTE: No filling defect is present to suggest PTE. Mediastinum: Heart and great vessels appear normal. No pathologic mediastinal adenopathy. Lungs: Lungs are clear. Bones: No significant abnormality. Upper abdomen: Limited imaging of the upper abdomen shows nothing acute. Gastric sleeve surgical ch anges are suspected. IMPRESSION: Negative for PTE. Clear lungs. Signer Name: Jaron Underwood Jr, MD Signed: 08/14/2021 3:19 PM Workstation Name: [id number]
--- NOTE | 2021-08-14 15:40 | Cat Scan Report ---
CT abdomen pelvis w con INDICATION / CLINICAL INFORMATION: acute llq abd pain. TECHNIQUE: Axial CT images were obtained through the abdomen and pelvis after IV contrast. All CT sc ans at this location are performed using CT dose reduction for ALARA by means of automated exposure c ontrol. COMPARISON: CT dated 12/02/2020 FINDINGS: LOWER CHEST: No significant abnormality LIVER: Small right hepatic cyst. GALLBLADDER/BILIARY TREE: No significant abnormality PANCREAS: No significant abnormality SPLEEN: No significant abnormality ADRENALS: No significant abnormality KIDNEYS / URETER: No significant abnormality URINARY BLADDER: Bladder is partially decompressed, though grossly unremarkable. REPRODUCTIVE ORGANS: Uterus is absent. There is a stable 2.7 cm cyst in the right adnexa. STOMACH / BOWEL: Postoperative changes of the stomach. Small bowel in caliber. There is mild diffuse wall thickening and pericolonic inflammatory stranding of the colon extending from the splenic flexur e to to the sigmoid. This likely reflects diffuse colitis. There are scattered colonic diverticula wi thout evidence of localized diverticulitis. Appendix is not visualized. LYMPH NODES: No significant adenopathy. VASCULATURE: No significant abnormality. OTHER: Small volume free fluid in the pelvis is likely reactive. No organized collection. No free air . SKELETAL SYSTEM: No acute osseous findings. IMPRESSION: 1. Findings most consistent with mild acute infectious or inflammatory colitis of the colon, extendin g from the splenic flexure to the sigmoid. 2. Scattered sigmoid diverticulosis without evidence of localized diverticulitis. 3. 2.7 cm cyst in the right adnexa, stable from prior study. This may reflect a paraovarian cyst. Rec ommend follow-up ultrasound in 6-12 months. Follow-up for Incidental Adnexal Cystic Mass on CT or MRI ( 1 cm)* *Based on the 2013 White Paper of the [employer] Incidental Findings Committee on Adnexal Findings Benign cyst, early post-menopausal (50-55 yo) Early post-menopausal with benign appearing cyst (oval/round, unilocular, imperceptible wall; uniform fluid; no solid/mural nodule): <= 3 cm - Benign; no follow-up recommended 3-5 cm - Ultrasound follow-up recommended at 6-12 mo > 5 cm - Ultrasound should be performed promptly for further characterization Signer Name: Julio Cornejo MD Signed: 08/14/2021 3:36 PM Workstation Name: [id number]
[2021-08-14] MEDS ORDERED: metroNIDAZOLE 500 MG TAB PO ONE (15:46)
[2021-08-14] MEDS ORDERED: levoFLOXacin 500 MG TAB PO ONE (15:46)
[2021-08-14] MEDS ORDERED: HYDROmorphone 1 MG/1 ML INJ IV ONE (16:14)
--- NOTE | 2021-08-14 16:19 | Consultation ---
History of Present Illness Consult date: 08/14/21 Requesting physician: ANAYA MORLEY Consult reason: chest pain History of present illness: Patient a 51-year-old female with a past medical history of coronary artery disease s/p STEMI (PCI of RCA) on DAPT therapy, hypertension, and anxiety who presented to the ED with a complaint of abdominal pain since Thursday. Patient reports on Thursday she developed intermittent abdominal pain associated with some nausea. She reports that by Thursday became a constant pain and that she also had developed diarrhea. She reports the pain is worsened with palpation. Furthermore she reports that as of this morning the pain was worsened and she developed some slight chest pain that she located on her left side however she clearly states it is different than the pain she had regarding her STEMI. Patient denies palpitations, shortness of breath, lightheadedness, or diaphoresis. Patient denies any exacerbating or relieving factors. Patient is followed by Dr. Huffman of our practice. Cardiology is consulted for ACS Past History Past Medical History: CAD, hypertension Past Surgical History: hysterectomy Social history: no significant social history Family history: CAD, hypertension Medications and Allergies Allergies Allergy/AdvReac Type Severity Reaction Status Date / Time meperidine [From Demerol] Allergy Unknown Verified 08/14/21 12:43 ketorolac [From Toradol] AdvReac Hives Verified 08/14/21 12:43 Home Medications Medication Instructions Recorded Confirmed Last Taken Type Acetaminophen [Non-Aspirin Extra 500 mg PO Q6HR PRN #30 tablet 08/14/21 Unknown Rx Strength] Aspirin [Vazalore] 81 mg PO QAM 08/14/21 08/14/21 08/13/21 History 81 AtorvaSTATin 80 mg PO QHS 08/14/21 08/14/21 08/13/21 History 80 Brilinta 90 mg PO BID 08/14/21 08/14/21 08/14/21 History 90 Ciprofloxacin HCl 500 mg PO BID #14 tab 08/14/21 Unknown Rx Delmis Root [Delmis] 250 mg PO QID PRN #30 capsule 08/14/21 Unknown Rx HYDROcodone/ACETAMINOPHEN 7.5 mg PO [id number] 08/14/21 08/14/21 Unknown History [Hydrocodon-Acetamin 7.5-325/15] Hydralazine HCl 25 mg PO BID #30 tab 08/14/21 Unknown Rx Lisinopril 2.5 mg PO QAM 08/14/21 08/14/21 08/14/21 History 2.5 Metoclopramide [Reglan] 10 mg PO QID PRN #30 tablet 08/14/21 Unknown Rx Metoprolol 25 mg PO BID 08/14/21 08/14/21 08/14/21 History 25 Morphine Sulfate [Morphine Sulfate 7.5 mg PO Q6HR PRN #10 tablet 08/14/21 Unknown Rx IR] Pantoprazole Sodium 40 mg PO QDAY #30 tab 08/14/21 Unknown Rx Pantoprazole [Protonix] 40 mg PO QDAY 08/14/21 08/14/21 08/14/21 History 40 Pregabalin 75 mg PO QHS 08/14/21 08/14/21 08/13/21 History 75 amLODIPine 5 mg PO QAM 08/14/21 08/14/21 08/14/21 History 5 metroNIDAZOLE [Flagyl] 500 mg PO Q8HR #21 tablet 08/14/21 Unknown Rx Active Meds: Active Medications Nitroglycerin (Nitroglycerin 0.4 Mg Tab Subl) 0.4 mg SL .Q5MIN PRN PRN Reason: Chest Pain Review of Systems Constitutional: no weight loss, no weight gain Ears, nose, mouth and throat: no nasal discharge, no sinus pressure, no sinus pain Cardiovascular: chest pain, high blood pressure, no palpitations, no rapid/irregular heart beat, no edema, no shortness of breath, no dyspnea on exertion Respiratory: no shortness of breath, no dyspnea on exertion Gastrointestinal: abdominal pain, nausea, diarrhea, no vomiting Musculoskeletal: no neck stiffness, no neck pain, no shooting arm pain Integumentary: no rash, no pruritis, no redness Neurological: no head injury, no transient paralysis Psychiatric: anxiety, no memory loss Physical Examination Vital Signs Pulse Resp BP Pulse Ox 81 16 152/101 100 08/14/21 12:05 08/14/21 12:05 08/14/21 12:05 08/14/21 12:05 General appearance: no acute distress HEENT: Positive: PERRL Neck: Positive: trachea midline Cardiac: Positive: Reg Rate and Rhythm Lungs: Positive: Normal Breath Sounds Neuro: Positive: Grossly Intact Abdomen: Positive: Soft, Tender Skin: Negative: Rash, Suspicious Lesions, Ulceration Extremities: Present: upper extr. pulses. Absent: edema Results 08/14/21 12:29 08/14/21 12:29 Cardiac Enzymes 08/14/21 Range/Units 12:29 AST 28 (5-40) units/L Coagulation 08/14/21 Range/Units 12:29 PT 12.8 (12.2-14.9) Sec. INR 0.87 (0.87-1.13) CBC 08/14/21 Range/Units 12:29 WBC 5.3 (4.5-11.0) K/mm3 RBC 3.78 (3.65-5.03) M/mm3 Hgb 11.5 (10.1-14.3) gm/dl Hct 36.0 (30.3-42.9) % Plt Count 312 (140-440) K/mm3 Lymph # (Auto) 1.3 (1.2-5.4) K/mm3 [place] # (Auto) 0.4 (0.0-0.8) K/mm3 Eos # (Auto) 0.2 (0.0-0.4) K/mm3 Baso # (Auto) 0.0 (0.0-0.1) K/mm3 Comprehensive Metabolic Panel 08/14/21 Range/Units 12:29 Sodium 142 (137-145) mmol/L Potassium 3.8 (3.6-5.0) mmol/L Chloride 104.3 (98-107) mmol/L Carbon Dioxide 24 (22-30) mmol/L BUN 13 (7-17) mg/dL Creatinine 0.5 L (0.6-1.2) mg/dL Glucose 104 H (65-100) mg/dL Calcium 9.5 (8.4-10.2) mg/dL AST 28 (5-40) units/L ALT 33 (7-56) units/L Alkaline Phosphatase 203 H (35-129) units/L Total Protein 7.7 (6.3-8.2) g/dL Albumin 4.4 (3.9-5) g/dL - Imaging and Cardiology Echo: report reviewed Cardiac cath: report reviewed EKG: report reviewed, image reviewed EKG interpretations - Telemetry EKG Rhythm: Sinus Rhythm - EKG Sinus rhythms and dysrhythmias: sinus rhythm Repolarization changes or abnormalities: nonspecific abnormality, ST segment, and/or T wave Assessment and Plan Patient a 51-year-old female with a past medical history of coronary artery disease s/p STEMI (PCI of RCA) on DAPT therapy, hypertension, and anxiety who presented to the ED with a complaint of abdominal pain since Thursday and developed chest pain this AM Diverticulitis Hypertension Coronary artery disease s/p PCI Anxiety Hyperlipidemia Cardiac cath 05/2021-Single vessel CAD with high-grade, 90% stenosis involving mid RCA 2. Successful angioplasty and stenting of high-grade, 90% stenosis involving mid RCA with SYNERGY BP-PHANI x 1. Normal LV systolic function and wall motion with ejection fraction 60% Mildly elevated LVEDP. Normal systemic arterial pressures Lexiscan stress MPI 08/01/2021-limited study. No evidence of significant stress- induced ischemia. Medium sized fixed inferior defect suggestive of prior infarction Echo 08/01/2021-EF 55 to 60%, right ventricular systolic function is normal. There is trace mitral regurgitation. Mild tricuspid regurgitation. Plan: EKG shows sinus 68 with LVH nonspecific T abnormalities. No acute ischemic changes. Troponins negative x2. AMI ruled out CT abdomen showed uncomplicated diverticulitis Patient had recent cath and both recent and negative stress and echo. No further cardiac diagnostics as indicated Continue outpatient medication regiment: Lisinopril, amlodipine, metoprolol, and dual antiplatelet therapy with aspirin and Brilinta Initiate hydralazine 25 mg p.o. twice daily for hypertension May wish to consider GI consult Cardiac status stable for discharge Patient in conjunction with Dr. Pisano who agrees with this plan of care - Patient Problems (1) Acute abdominal pain Current Visit: Yes Status: Acute (2) Acute chest pain Current Visit: Yes Status: Acute (3) Diverticulitis Current Visit: Yes Status: Acute (4) Hypertension Current Visit: No Status: Chronic
[2021-08-14 18:17] VITALS: BP 129/84
== END 2021-08-14 18:17 | disposition home or self-care (01) ==
LOC: ED 12:02
DX: R10.9 Unspecified abdominal pain (principal); R07.9 Chest pain, unspecified; K57.92 Diverticulitis of intestine, part unspecified, without perforation or abscess without bleeding; Z87.891 Personal history of nicotine dependence; Z88.5 Allergy status to narcotic agent
CPT/HCPCS: 36415; 71046; 71275; 74177; 80053; 81001; 82140; 84484; 85025; 85379; 85610; 87086; 93005; 96361; 96374; 96375; 99285; J1170; J2270; J2405; J7030; Q9967; Q0162

== ENCOUNTER 2021-08-19 18:00 | Emergency (ER) | payer BC ==
[2021-08-19 19:50] VITALS: BP 149/102
[2021-08-19 20:52] LABS: Bilirubin,Urine NEG (Negative); Blood,Urine SM (Negative); Color,Urine Yellow (Yellow); Protein,Urine <15 mg/dL mg/dL (Negative); RBC,Urine < 1.0 /HPF (0.0-6.0); Urobilinogen,Urine < 2.0 mg/dL (<2.0)
[2021-08-19 20:57] LABS: WBC,Urine < 1.0 /HPF (0.0-6.0)
[2021-08-19 20:58] LABS: Basophils % (Auto) 0.9 % (0.0-1.8); Eosinophils # (Auto) 0.1 K/mm3 (0.0-0.4); Hematocrit 36.9 % (30.3-42.9); Hemoglobin 11.8 gm/dl (10.1-14.3); Lymphocytes # (Auto) 1.1 K/mm3 (1.2-5.4); Lymphocytes % (Auto) 24.2 % (13.4-35.0); Mean Corpuscular HGB Conc 32 % (30-34); Mean Corpuscular Volume 96 fl (79-97); Monocytes # (Auto) 0.5 K/mm3 (0.0-0.8); Platelet Count 296 K/mm3 (140-440); Red Blood Count 3.84 M/mm3 (3.65-5.03); Red Cell Distribution Width 15.3 % (13.2-15.2)
[2021-08-19] MEDS ORDERED: METOCLOPRAMIDE 10 MG/2 ML INJ IV ONE (21:06)
[2021-08-19] MEDS ORDERED: MORPHINE 4 MG/1 ML INJ IV ONE (21:06)
[2021-08-19] MEDS ORDERED: diphenhydrAMINE 50 MG/ML VIAL IV ONE (21:06)
[2021-08-19] MEDS ORDERED: PANTOPRAZOLE 40 MG INJ IV ONE (21:12)
[2021-08-19 21:22] LABS: Alanine Aminotransferase 25 units/L (7-56); Albumin 4.5 g/dL (3.9-5); Blood Urea Nitrogen 11 mg/dL (7-17); Calcium 9.4 mg/dL (8.4-10.2); Hemolysis Index 2
--- NOTE | 2021-08-19 21:24 | Emergency Department Report ---
ED General Adult HPI - General Chief complaint: Nausea/Vomiting/Diarrhea Stated complaint: DIZZY Time Seen by Provider: 08/19/21 20:11 Source: patient Mode of arrival: Ambulatory Limitations: No Limitations - History of Present Illness Initial comments: 51-year-old -[place] female patient presents with complaints of continued abdominal pain along with nausea and vomiting since her visit 08/14/2020. At that visit, patient was diagnosed with diverticulitis and discharged home on Cipro and Flagyl, antiemetics, and pain medication. She states that her vomiting has been uncontrolled with the meds given for home. She denies any hematemesis/coffee-ground emesis, fever/chills/sweats, or melena/hematochezia. Pain has worsened in the upper abdomen per patient. She states compliance with all meds. - Related Data Home Medications Medication Instructions Recorded Confirmed Last Taken Aspirin [Vazalore] 81 mg PO QAM 08/14/21 08/14/21 08/13/21 81 AtorvaSTATin 80 mg PO QHS 08/14/21 08/14/21 08/13/21 80 Brilinta 90 mg PO BID 08/14/21 08/14/21 08/14/21 90 HYDROcodone/ACETAMINOPHEN 7.5 mg PO [id number] 08/14/21 08/14/21 Unknown [Hydrocodon-Acetamin 7.5-325/15] Lisinopril 2.5 mg PO QAM 08/14/21 08/14/21 08/14/21 2.5 Metoprolol 25 mg PO BID 08/14/21 08/14/21 08/14/21 25 Pantoprazole [Protonix] 40 mg PO QDAY 08/14/21 08/14/21 08/14/21 40 Pregabalin 75 mg PO QHS 08/14/21 08/14/21 08/13/21 75 amLODIPine 5 mg PO QAM 08/14/21 08/14/21 08/14/21 5 Previous Rx's Medication Instructions Recorded Last Taken Type Acetaminophen [Non-Aspirin Extra 500 mg PO Q6HR PRN #30 tablet 08/14/21 Unknown Rx Strength] Ciprofloxacin HCl 500 mg PO BID #14 tab 08/14/21 Unknown Rx Delmis Root [Delmis] 250 mg PO QID PRN #30 capsule 08/14/21 Unknown Rx Hydralazine HCl 25 mg PO BID #30 tab 08/14/21 Unknown Rx Metoclopramide [Reglan] 10 mg PO QID PRN #30 tablet 08/14/21 Unknown Rx Morphine Sulfate [Morphine Sulfate 7.5 mg PO Q6HR PRN #10 tablet 08/14/21 Unknown Rx IR] Pantoprazole Sodium 40 mg PO QDAY #30 tab 08/14/21 Unknown Rx metroNIDAZOLE [Flagyl] 500 mg PO Q8HR #21 tablet 08/14/21 Unknown Rx Acetaminophen/Codeine [Tylenol 1 tab PO Q6H PRN #10 tab 08/19/21 Unknown Rx /Codeine # 3 tab] Ondansetron [Zofran Odt] 8 mg PO Q8HR PRN #20 tab.rapdis 08/19/21 Unknown Rx Allergies Allergy/AdvReac Type Severity Reaction Status Date / Time meperidine [From Demerol] Allergy Unknown Verified 08/19/21 19:38 ketorolac [From Toradol] AdvReac Hives Verified 08/19/21 19:38 ED Review of Systems ROS: Stated complaint: DIZZY Other details as noted in HPI Constitutional: denies: chills, fever Gastrointestinal: abdominal pain, nausea, vomiting. denies: diarrhea, constipat ion, hematemesis, melena Genitourinary: denies: urgency, dysuria, frequency, hematuria Musculoskeletal: denies: back pain Skin: denies: change in color ED Past Medical Hx - Past Medical History Hx Heart Attack/AMI: Yes (06/16) Hx Congestive Heart Failure: No Hx Diabetes: No Hx Headaches / Migraines: Yes Hx Asthma: No Hx COPD: No Hx HIV: No Additional medical history: Colon polyps - Surgical History Past Surgical History?: Yes Additional Surgical History: Colonoscopy - Social History Smoking Status: Former Smoker Substance Use Type: None - Medications Home Medications: Home Medications Medication Instructions Recorded Confirmed Last Taken Type Acetaminophen [Non-Aspirin Extra 500 mg PO Q6HR PRN #30 tablet 08/14/21 Unknown Rx Strength] Aspirin [Vazalore] 81 mg PO QAM 08/14/21 08/14/21 08/13/21 History 81 AtorvaSTATin 80 mg PO QHS 08/14/21 08/14/21 08/13/21 History 80 Brilinta 90 mg PO BID 0108/14/21 08/14/21 History 90 Ciprofloxacin HCl 500 mg PO BID #14 tab 08/14/21 Unknown Rx Delmis Root [Delmis] 250 mg PO QID PRN #30 capsule 08/14/21 Unknown Rx HYDROcodone/ACETAMINOPHEN 7.5 mg PO [id number] 08/14/21 08/14/21 Unknown History [Hydrocodon-Acetamin 7.5-325/15] Hydralazine HCl 25 mg PO BID #30 tab 08/14/21 Unknown Rx Lisinopril 2.5 mg PO QAM 08/14/21 08/14/21 08/14/21 History 2.5 Metoclopramide [Reglan] 10 mg PO QID PRN #30 tablet 08/14/21 Unknown Rx Metoprolol 25 mg PO BID 08/14/21 08/14/21 08/14/21 History 25 Morphine Sulfate [Morphine Sulfate 7.5 mg PO Q6HR PRN #10 tablet 08/14/21 Unknown Rx IR] Pantoprazole Sodium 40 mg PO QDAY #30 tab 08/14/21 Unknown Rx Pantoprazole [Protonix] 40 mg PO QDAY 08/14/21 08/14/21 08/14/21 History 40 Pregabalin 75 mg PO QHS 08/14/21 08/14/21 08/13/21 History 75 amLODIPine 5 mg PO QAM 08/14/21 08/14/21 08/14/21 History 5 metroNIDAZOLE [Flagyl] 500 mg PO Q8HR #21 tablet 08/14/21 Unknown Rx Acetaminophen/Codeine [Tylenol 1 tab PO Q6H PRN #10 tab 08/19/21 Unknown Rx /Codeine # 3 tab] Ondansetron [Zofran Odt] 8 mg PO Q8HR PRN #20 tab.rapdis 08/19/21 Unknown Rx ED Physical Exam - General Limitations: No Limitations General appearance: alert, in no apparent distress - Head Head exam: Present: atraumatic, normocephalic - Eye Eye exam: Present: normal appearance. Absent: scleral icterus - Respiratory Respiratory exam: Present: normal lung sounds bilaterally. Absent: respiratory distress - Cardiovascular Cardiovascular Exam: Present: regular rate, normal rhythm - GI/Abdominal GI/Abdominal exam: Present: soft, tenderness (Epigastric, lower abdomen), normal bowel sounds. Absent: distended, guarding, rebound, rigid - Neurological Exam Neurological exam: Present: alert, oriented X3, normal gait - Psychiatric Psychiatric exam: Present: normal affect, normal mood - Skin Skin exam: Present: warm, dry, intact, normal color. Absent: rash ED Course Vital Signs 08/19/21 19:34 Temperature 98.7 F Pulse Rate 87 Respiratory 17 Rate Blood Pressure 149/102 O2 Sat by Pulse 100 Oximetry ED Medical Decision Making - Lab Data Result diagrams: 08/19/21 20:32 08/19/21 20:32 Lab Results 08/19/21 08/19/21 08/19/21 Range/Units 20:32 20:32 20:38 WBC 4.7 (4.5-11.0) K/mm3 RBC 3.84 (3.65-5.03) M/mm3 Hgb 11.8 (10.1-14.3) gm/dl Hct 36.9 (30.3-42.9) % MCV 96 (79-97) fl MCH 31 (28-32) pg MCHC 32 (30-34) % RDW 15.3 H (13.2-15.2) % Plt Count 296 (140-440) K/mm3 Lymph % (Auto) 24.2 (13.4-35.0) % [place] % (Auto) 10.0 H (0.0-7.3) % Eos % (Auto) 3.0 (0.0-4.3) % Baso % (Auto) 0.9 (0.0-1.8) % Lymph # (Auto) 1.1 L (1.2-5.4) K/mm3 [place] # (Auto) 0.5 (0.0-0.8) K/mm3 Eos # (Auto) 0.1 (0.0-0.4) K/mm3 Baso # (Auto) 0.0 (0.0-0.1) K/mm3 Seg Neutrophils % 61.9 (40.0-70.0) % Seg Neutrophils # 2.9 (1.8-7.7) K/mm3 Sodium 139 (137-145) mmol/L Potassium 3.5 L (3.6-5.0) mmol/L Chloride 100.8 (98-107) mmol/L Carbon Dioxide 24 (22-30) mmol/L Anion Gap 18 mmol/L BUN 11 (7-17) mg/dL Creatinine 0.6 (0.6-1.2) mg/dL Estimated GFR > 60 ml/min BUN/Creatinine Ratio 18 % Glucose 105 H (65-100) mg/dL Calcium 9.4 (8.4-10.2) mg/dL Total Bilirubin 0.30 (0.1-1.2) mg/dL AST 26 (5-40) units/L ALT 25 (7-56) units/L Alkaline Phosphatase 160 H (35-129) units/L Total Protein 7.5 (6.3-8.2) g/dL Albumin 4.5 (3.9-5) g/dL Albumin/Globulin Ratio 1.5 % Lipase 46 (13-60) units/L Urine Color Yellow (Yellow) Urine Turbidity Clear (Clear) Urine pH 6.0 (5.0-7.0) Ur Specific [place] 1.018 (1.003-1.030) Urine Protein <15 mg/dl (Negative) mg/dL Urine Glucose (UA) Neg (Negative) mg/dL Urine Ketones Tr (Negative) mg/dL Urine Blood Sm (Negative) Urine Nitrite Neg (Negative) Urine Bilirubin Neg (Negative) Urine Urobilinogen < 2.0 (<2.0) mg/dL Ur Leukocyte Esterase Neg (Negative) Urine WBC (Auto) < 1.0 (0.0-6.0) /HPF Urine RBC (Auto) < 1.0 (0.0-6.0) /HPF - Radiology Data Radiology results: report reviewed CT ABDOMEN AND PELVIS WITH CONTRAST INDICATION / CLINICAL INFORMATION: worsening abdominal pain, recent diverticulitis. TECHNIQUE: Axial CT images were obtained through the abdomen and pelvis after 100 cc Omnipaque [address] scans at this location are performed using CT dose reduction for ALARA by means of automated exposure control. COMPARISON: CT 08/14/2021 FINDINGS: LOWER CHEST: No significant abnormality. LIVER: There is a 1.6 cm cyst in the right hepatic lobe. GALLBLADDER: No significant abnormality. BILE DUCTS: No significant abnormality. PANCREAS: No significant abnormality. SPLEEN: No significant abnormality. ADRENALS: No significant abnormality. RIGHT KIDNEY / URETER: No significant abnormality. LEFT KIDNEY / URETER: No significant abnormality. STOMACH / SMALL BOWEL: Postsurgical changes of the stomach. Small bowel is nondilated. COLON: Previously seen pericolonic stranding is no longer identified. Occasional diverticula. APPENDIX: Not visualized. PERITONEUM: No free fluid. No free air. No fluid collection. LYMPH NODES: No significant adenopathy. AORTA / ARTERIES: Mild atherosclerotic calcification without acute abnormality. IVC / VEINS: No significant abnormality. URINARY BLADDER: No significant abnormality. REPRODUCTIVE ORGANS: Stable approximately 3 cm right adnexal cyst. ADDITIONAL FINDINGS: None. SKELETAL SYSTEM: No significant abnormality. IMPRESSION: 1. No acute abnormality identified. 2. Previously seen stranding of the descending colon has resolved. 3. Stable right adnexal cyst. - Medical Decision Making 51-year-old -[place] female patient presents with complaints of continued abdominal pain along with nausea and vomiting since her visit 08/14/2020. At that visit, patient was diagnosed with diverticulitis and discharged home on Cipro and Flagyl, antiemetics, and pain medication. She states that her vomiting has been uncontrolled with the meds given for home. She denies any hematemesis/coffee-ground emesis, fever/chills/sweats, or melena/hematochezia. Pain has worsened in the upper abdomen per patient. She states compliance with all meds. No acute abnormalities noted on CBC. Minimal hypokalemia noted. Patient given antiemetics and fluids. Repeat CT shows resolution of prior diverticulitis and infection. No other acute abnormalities noted on CT. Patient's vitals are within normal limits and she is well-appearing. No vomiting observed here in ED. She is tolerating fluids p.o. without difficulty. She is stable for discharge home. Recommend follow-up with GI specialist. Strict return precautions were discussed in detail patient verbalized understand Critical care attestation.: If time is entered above; I have spent that time in minutes in the direct care of this critically ill patient, excluding procedure time. ED Disposition Clinical Impression: Vomiting, Abdominal pain Disposition: 01 HOME / SELF CARE / HOMELESS Is pt being admited?: No Condition: Stable Instructions: Nausea and Vomiting, Adult, [id number], Abdominal Pain, Adult, [id number] Prescriptions: Acetaminophen/Codeine [Tylenol /Codeine # 3 tab] 1 tab PO Q6H PRN #10 tab PRN Reason: Pain , Severe (7-10) Ondansetron [Zofran Odt] 8 mg PO Q8HR PRN #20 tab.rapdis PRN Reason: Nausea And Vomiting Referrals: [facility] [Provider Group] - 3-5 Days Forms: Work/School Release Form(ED)
[2021-08-19 21:27] LABS: BUN/Creatinine Ratio 18
--- NOTE | 2021-08-19 22:22 | Cat Scan Report ---
CT ABDOMEN AND PELVIS WITH CONTRAST INDICATION / CLINICAL INFORMATION: worsening abdominal pain, recent diverticulitis. TECHNIQUE: Axial CT images were obtained through the abdomen and pelvis after 100 cc Omnipaque [address] scans at this location are performed using CT dose reduction for ALARA by means of automated exposure control. COMPARISON: CT 08/14/2021 FINDINGS: LOWER CHEST: No significant abnormality. LIVER: There is a 1.6 cm cyst in the right hepatic lobe. GALLBLADDER: No significant abnormality. BILE DUCTS: No significant abnormality. PANCREAS: No significant abnormality. SPLEEN: No significant abnormality. ADRENALS: No significant abnormality. RIGHT KIDNEY / URETER: No significant abnormality. LEFT KIDNEY / URETER: No significant abnormality. STOMACH / SMALL BOWEL: Postsurgical changes of the stomach. Small bowel is nondilated. COLON: Previously seen pericolonic stranding is no longer identified. Occasional diverticula. APPENDIX: Not visualized. PERITONEUM: No free fluid. No free air. No fluid collection. LYMPH NODES: No significant adenopathy. AORTA / ARTERIES: Mild atherosclerotic calcification without acute abnormality. IVC / VEINS: No significant abnormality. URINARY BLADDER: No significant abnormality. REPRODUCTIVE ORGANS: Stable approximately 3 cm right adnexal cyst. ADDITIONAL FINDINGS: None. SKELETAL SYSTEM: No significant abnormality. IMPRESSION: 1. No acute abnormality identified. 2. Previously seen stranding of the descending colon has resolved. 3. Stable right adnexal cyst. Signer Name: Dario Blair MD Signed: 08/19/2021 10:18 PM Workstation Name: [id number]
[2021-08-19] MEDS ORDERED: SODIUM CHLORIDE 0.9% 1000 ML 1,000 ML IV ONE (23:43)
[2021-08-19] MEDS ORDERED: POTASSIUM CHLORIDE ER 20 MEQ TAB PO ONE (23:43)
[2021-08-20] MEDS ORDERED: HYDROcodone/ACETAMINOPHEN 5-325 MG TAB PO ONE (00:05)
[2021-08-20] MEDS ORDERED: ONDANSETRON 4 MG/2 ML INJ IV ONE (00:05)
== END 2021-08-20 01:40 | disposition home or self-care (01) ==
LOC: ED 18:00
DX: R11.2 Nausea with vomiting, unspecified (principal); R10.9 Unspecified abdominal pain; Z87.891 Personal history of nicotine dependence
CPT/HCPCS: 36415; 74177; 80053; 81001; 83690; 85025; 96361; 96374; 96375; 99284; C9113; J1200; J2270; J2405; J2765; J7030; Q9967; Q0162